=== PATIENT | male | born 1940 | race Caucasian/White ===

== ENCOUNTER 2018-05-25 06:08 | Day surgery (SDC) | payer MEDICARE, BC ==
--- NOTE | 2018-05-23 07:00 | HP ---
CC: Dr. Strauss; Dr. Mcgill at [facility]; Division of Pulmonary Medicine [facility] * ADMITTING HISTORY AND PHYSICAL: DATE OF ADMISSION: 05/25/18 ADMITTING DIAGNOSES: 1. Left hydronephrosis. 2. Calculus, left ureter. 3. Left renal calculus. PLANNED PROCEDURE: Left ureteroscopy, laser lithotripsy, and stent insertion ( possibly to be followed in near future by shockwave lithotripsy). SURGEON: Dr. Holman. HISTORY OF PRESENT ILLNESS: Sincere Myers is a 77-year-old gentleman who was recently evaluated after a gap of several years. He had previously been seen for a left hydrocele. He now presented with the imaging that had originally been done about in December of 2017, which according to the patient had shown an 8 -mm calculus in the left zsp-jy-[id number] ureter with left hydronephrosis. Apparently, nothing was done about this at that time up until recently when he had repeat imaging, which showed a persistent calculus. I saw him for the first time on 05/21/18 and ultrasound in my office confirmed what appears to be almost a 10 mm calculus in the mid to distal left ureter with left hydronephrosis and increased cortical echogenicity. Because of the large size of the calculus and the fact that I suspect based on the patient's history that it has been in the same location for at least the last 4 to 5 months, I have explained to him that he may require a 2-stage procedure with an initial stent insertion to allow for passive dilatation of the ureter followed later on by repeat ureteroscopy and laser lithotripsy. He also has a calculus of the left kidney, which may require shockwave lithotripsy at a later date. PAST MEDICAL HISTORY: Significant for: 1. Pulmonary asbestosis and recent diagnosis of mesothelioma, but did not require any treatment. 2. Atherosclerosis heart disease. 3. Diabetes mellitus. 4. Hypertension. 5. Peripheral vascular disease. 6. History of gout. MEDICATIONS ON ADMISSION: 1. Allopurinol 200 mg daily. 2. Amlodipine 10 mg daily. 3. Aspirin 325 mg daily. 4. Lipitor 20 mg daily. 5. Coreg 12.5 mg twice a day. 6. Glucotrol 5 mg 3 times a day. 7. Prevacid 30 mg daily. 8. Prinivil 40 mg twice a day. 9. Metformin 1000 mg twice a day. PAST SURGICAL HISTORY: Significant for bilateral total knee replacement, cholecystectomy, foot surgery, coronary artery bypass graft, and shockwave lithotripsy. ALLERGIES: No known drug allergies. REVIEW OF SYSTEMS: He denies any chest pain or shortness of breath (although he does have asbestosis). PHYSICAL EXAMINATION GENERAL: Reveals a pleasant elderly gentleman. VITAL SIGNS: Blood pressure is 134/80, pulse 81 per minute and regular, oxygen saturation 98% on room air, temperature 96.1. LUNGS: Clear bilaterally. CARDIOVASCULAR: Regular rate and rhythm. S1, S2. ABDOMEN: Soft with minimal left flank tenderness. IMPRESSION: I had a detailed discussion with Mr. Myers and reviewed all his imaging and lab studies and explained the procedure to him. I have also explained to him that he may require a multi-stage procedure given the fact that the stone is fairly big and has probably been impacted in the same location for the last several months. PLAN/RECOMMENDATIONS: Plan is left ureteroscopy, laser lithotripsy, and stent insertion; possibly to be followed by shockwave lithotripsy of the left renal calculus. [id number]/CPS #: [id number] ARY
[~2018-05-25 06:08] MED LIST: Buffered Lidocaine 0.9% SYRIN* 5 ML/SYR SYRINGE INTRADERM ONE; Famotidine IV* 10 MG/ML 2 ML (20 mg) IV ONE; Lactated Ringers 1000 ML Bag* 1,000 ML IV SCH
[2018-05-25] MEDS ORDERED: Gentamicin ADULT (*) 140 MG in NS 0.9% 100 ML* 100 ML IVPB ONE (07:00)
[2018-05-25] MEDS ORDERED: Famotidine IV* 10 MG/ML 2 ML (20 mg) ONE (07:12)
[2018-05-25] MEDS ORDERED: cefTRIAXone(*) 2 GM ADDV.VIAL IVPB ONE (07:15)
[2018-05-25] MEDS ORDERED: Lidocaine 2% PF * 5 ML VIAL ONE (07:17)
[2018-05-25] MEDS ORDERED: Ondansetron INJ* 2 MG/ML VIAL ONE (07:17)
[2018-05-25] MEDS ORDERED: Propofol* 10 MG/ML 20 ML BTL ONE (07:17)
[2018-05-25] MEDS ORDERED: Dexamethasone IV* 4 MG/ML 1 ML (4 MG) ONE (07:17)
[2018-05-25] MEDS ORDERED: Midazolam* 1 MG/ML 5 ML VIAL (5 MG) ONE (07:18)
[2018-05-25] MEDS ORDERED: KETAMINE HCL* 50 MG/ML 10 ML VIAL ONE (07:18)
[2018-05-25] MEDS ORDERED: Phenylephrine INJ* 10 MG/ML 1 ML VIAL (10 MG) ONE (07:18)
[2018-05-25] MEDS ORDERED: fentaNYL* 50 MCG/ML 2 ML VIAL (100 MCG VIAL) ONE ×2 (07:18→09:17)
[2018-05-25] MEDS ORDERED: Iohexol 180 (CONTRAST) 10 ML SDV IV ONE (07:20)
[2018-05-25] MEDS ORDERED: VASOPRESSIN 20 UNITS/ML 1 ML VIAL ONE (08:06)
[2018-05-25] MEDS ORDERED: Furosemide IV* 10 MG/ML 2 ML VIAL (20 MG) ONE ×2 (09:22→11:07)
[2018-05-25] MEDS ORDERED: Naloxone* 0.4 MG/ML 1 ML VIAL IV PRN (09:55)
[2018-05-25] MEDS ORDERED: Ondansetron INJ* 2 MG/ML VIAL IV PRN (09:55)
[2018-05-25] MEDS ORDERED: fentaNYL* 50 MCG/ML 2 ML VIAL (100 MCG VIAL) IV PRN (09:55)
[2018-05-25 11:32] VITALS: BP 142/77
--- NOTE | 2018-05-25 14:29 | OP ---
CC: Dr. Strauss; Dr. Fernando Holman* OPERATIVE REPORT: DATE OF OPERATION: 05/25/18 - [facility] DATE OF : 40 SURGEON: Fernando Holman MD ANESTHESIOLOGIST: Dr. Isbell. ANESTHESIA: General. PRE-OP DIAGNOSES: 1. Left hydronephrosis. 2. Calculus, left ureter. POST-OP DIAGNOSES: 1. Left hydronephrosis. 2. Calculus, left ureter. 3. Left ureteral polyps. OPERATIVE PROCEDURE: Cystoscopy, left retrograde pyelogram, left ureteroscopy, laser lithotripsy, and left stent insertion. INDICATIONS: Sincere Myers is a 77-year-old gentleman, who reportedly had an imaging study done in December, which had shown an 8-mm obstructing calculus in the left mid to distal ureter. For some reason, there was no further evaluation done up until recently when he had a repeat imaging study done for unrelated reasons, which showed a persistent calculus with persistent left hydronephrosis. OPERATIVE FINDINGS: 1. Moderately enlarged prostate. 2. Polyp, left distal ureter noted on ureteroscopy. 3. Large calculus impacted in left distal ureter, about 6 to 7 cm proximal to ureterovesical junction (possible additional proximal calculus). COMPLICATIONS: None. STENT USED: A 7-Argentine stent, left ureter. POSTOPERATIVE CONDITION: Stable. DESCRIPTION OF PROCEDURE: After induction of general anesthesia, the patient was placed in dorsal lithotomy position. Sequential compression devices were in place and functioning. Initial evaluation revealed a normal-appearing urethra, a mild to moderately enlarged prostate, and a trabeculated bladder with few small diverticula. A guidewire was introduced into the left ureter. Initially, the wire would not advance beyond the point of obstruction, but after some initial manipulation, the wire was carefully advanced proximally. Retrograde pyelogram revealed severe left hydronephrosis with a dilated proximal ureter. A 6-Argentine semi-rigid ureteroscope was introduced and advanced under direct vision. There was couple of small polyps noted in the lumen of the left distal ureter. About 6 to 7 cm above the ureterovesical junction, a fairly large 10 to 12 mm calculus was noted to be impacted with surrounding inflammatory response. Using a 550 micron holmium laser, this was broken up into multiple smaller pieces. Because of the degree of impaction, I did not attempt to completely remove all the pieces at the present time as I would like to allow for some passive dilatation of that part of the ureter and so after completion of the laser lithotripsy, a 7-Argentine stent was introduced and positioned under fluoroscopy with good proximal and distal positioning obtained. My plan is to leave the stent in for a few weeks, allow the hydronephrosis to resolve, and then to bring him back for a repeat ureteroscopy to remove all the remaining fragments and also to check possibly for an additional stone more proximal in the ureter where I could see what appears to be a radiopaque calculus on fluoroscopy higher up. The patient tolerated the procedure satisfactorily and was transferred back to recovery area in stable condition. [id number]/CPS #: [id number] ARY
== END 2018-05-25 11:53 | disposition home or self-care (01) ==
LOC: OR 06:08
PROVIDERS: ATTEND Urology
DX: N13.2 Hydronephrosis with renal and ureteral calculous obstruction (principal); N28.89 Other specified disorders of kidney and ureter; N40.0 Benign prostatic hyperplasia without lower urinary tract symptoms; I25.10 Atherosclerotic heart disease of native coronary artery without angina pectoris; Z95.1 Presence of aortocoronary bypass graft; E11.9 Type 2 diabetes mellitus without complications; Z79.84 Long term (current) use of oral hypoglycemic drugs; I65.29 Occlusion and stenosis of unspecified carotid artery; I10 Essential (primary) hypertension
CPT/HCPCS: 74018; 74420; C1876; J0696; J1100; J1580; J1940; J2250; J2405; J2704; J3010

== ENCOUNTER 2018-06-20 06:36 | Day surgery (SDC) | payer MEDICARE, BC ==
--- NOTE | 2018-06-14 20:18 | HP ---
CC: Dr. Raphael Strauss; Dr. Mcgill, [facility] * ADMITTING HISTORY AND PHYSICAL: DATE OF ADMISSION: 06/20/18 ADMITTING DIAGNOSES: 1. Left ureteral polyps. 2. Left ureteral calculus. SURGICAL PROCEDURE: Left ureteroscopy; biopsy, left ureteral polyp; laser lithotripsy; left stent replacement. SURGEON: Dr. Holman. HISTORY OF PRESENT ILLNESS: Sincere Myers is a 77-year-old gentleman who had undergone a left ureteroscopy for a large left ureteral calculus on 05/25/18. At the time of ureteroscopy, he was noted to have a few polyps in the distal left ureter, the etiology of which is unknown. He had undergone laser lithotripsy, but because the calculus was very large and was impacted, he still has some residual fragments. He is now being brought in for further evaluation for the left ureteral polyps and completion of the laser lithotripsy for the calculus. PAST MEDICAL HISTORY: Significant for atherosclerotic heart disease, history of pulmonary asbestosis and mesothelioma, hypertension, diabetes mellitus, gout , and peripheral vascular disease. PAST SURGICAL HISTORY: Extensive and significant for cholecystectomy, bilateral total knee replacement, coronary artery bypass graft, and shock wave lithotripsy of renal calculus. MEDICATIONS: On admission: 1. Amlodipine 10 mg daily. 2. Aspirin 325 mg daily. 3. Allopurinol 200 mg daily. 4. Coreg 12.5 mg b.i.d. 5. Glucotrol 5 mg 3 times a day. 6. Lipitor 20 mg daily. 7. Metformin 1000 mg b.i.d. 8. Prinivil 40 mg twice a day. 9. Prevacid 30 mg daily. ALLERGIES: No known drug allergies. REVIEW OF SYSTEMS: He denies any chest pain or shortness of breath other than his chronic level of shortness of breath, but no acute exacerbations. PHYSICAL EXAMINATION VITAL SIGNS: Blood pressure is 142/90, pulse 75 per minute and regular, oxygen saturation 98% on room air. LUNGS: Clear bilaterally. CARDIOVASCULAR: Regular rate and rhythm. S1, S2. ABDOMEN: Soft without masses with left flank tenderness. IMPRESSION AND PLAN: A 77-year-old gentleman with a large left ureteral calculus as well as polyps in the left ureter. Planned procedure is left ureteroscopy, biopsy of ureteral polyps, laser lithotripsy, and stent replacement. [id number]/[facility] #: [id number] [facility]
[~2018-06-20 06:36] MED LIST changes: -Buffered Lidocaine 0.9% SYRIN* 5 ML/SYR SYRINGE INTRADERM ONE; +Buffered Lidocaine 1% SYRIN* 1 ML/SYRINGE INTRADERM ONE; -Famotidine IV* 10 MG/ML 2 ML (20 mg) IV ONE; +Sodium Citrate/Citric Acid* 15 ML UDC PO ONE
[2018-06-20] MEDS ORDERED: Gentamicin ADULT (*) 160 MG in NS 0.9% 100 ML* 100 ML IVPB ONE (07:00)
[2018-06-20] MEDS ORDERED: Buffered Lidocaine 1% SYRIN* 1 ML/SYRINGE INTRADERM ONE (07:04)
[2018-06-20] MEDS ORDERED: Sodium Citrate/Citric Acid* 15 ML UDC ONE (07:04)
[2018-06-20] MEDS ORDERED: cefTRIAXone(*) 2 GM ADDV.VIAL IVPB ONE (07:04)
[2018-06-20] MEDS ORDERED: Iohexol 180 (CONTRAST) 10 ML SDV IV ONE (08:33)
[2018-06-20] MEDS ORDERED: fentaNYL* 50 MCG/ML 2 ML VIAL (100 MCG VIAL) IV PRN (08:35)
[2018-06-20] MEDS ORDERED: Ondansetron INJ* 2 MG/ML VIAL IV PRN (08:35)
[2018-06-20] MEDS ORDERED: Naloxone* 0.4 MG/ML 1 ML VIAL IV PRN (08:35)
[2018-06-20] MEDS ORDERED: Lidocaine 2% PF * 5 ML VIAL ONE (08:54)
[2018-06-20] MEDS ORDERED: fentaNYL* 50 MCG/ML 2 ML VIAL (100 MCG VIAL) ONE (08:54)
[2018-06-20] MEDS ORDERED: Propofol* 10 MG/ML 20 ML BTL ONE (08:54)
[2018-06-20] MEDS ORDERED: Carvedilol TAB* 25 MG PO ONE (10:03)
[2018-06-20] MEDS ORDERED: glipiZIDE TAB* 5 MG PO ONE (10:06)
[2018-06-20] MEDS ORDERED: Furosemide IV* 10 MG/ML 2 ML VIAL (20 MG) ONE (10:24)
[2018-06-20 11:26] VITALS: BP 169/92
--- NOTE | 2018-06-20 12:00 | OP ---
CC: Dr. Strauss * DATE OF OPERATION: 06/20/18 - [facility] DATE OF : 40 SURGEON: Dr. Holman. ANESTHESIOLOGIST: Dr. Corona. ANESTHESIA: General. PRE-OP DIAGNOSES: 1. Left hydronephrosis. 2. Calculus, left ureter. 3. Left ureteral polyps. POST-OP DIAGNOSES: 1. Left hydronephrosis. 2. Calculus, left ureter. 3. Left ureteral polyps. 4. 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 OPERATIVE PROCEDURE: Cystoscopy, left retrograde pyelogram, left ureteroscopy and stone extraction, and left stent replacement. COMPLICATIONS: None. STENT USED: A 7-Russian, 28 cm silicone stent, left ureter. POSTOPERATIVE CONDITION: Stable. INDICATIONS: Sinecre Myers is a 77-year-old gentleman who was evaluated because of a large calculus that had been impacted in his left ureter for several months. He had previously undergone laser lithotripsy with partial fragmentation of the calculus, but due to the extensive inflammatory response at the site of impaction, I did not completely clear out the calculus at that time. OPERATIVE FINDINGS: 1. Enlarged prostate with elevated bladder neck. 2. Stricture, left mid to distal ureter at site of prior large calculus impaction. 3. Residual fragments left ureter, removed. 4. Left ureteral polyps. DESCRIPTION OF PROCEDURE: After induction of general anesthesia, the patient was placed in dorsal lithotomy position. Sequential compression devices were in place and functioning. Initial evaluation revealed a normal-appearing urethra and a moderately enlarged prostate with an elevated bladder neck. The bladder was examined and was normal. The previously placed stent was seen and removed. Retrograde pyelogram revealed fullness of the left collecting system. A 4-Russian open-ended catheter advanced. There was considerable resistance at the junction of the mid to distal left ureter. A 6-Russian semi-rigid ureteroscope was introduced and it advanced under direct vision. At the junction of the mid to distal left ureter where the calculus had been impacted, there was considerable edema and inflammatory response and a stricture. There were several residual fragments still noted from the prior laser lithotripsy and most of these were removed using a 3- pronged grasper. Some of them appeared to be embedded into the mucosa and I did not attempt to remove them at this time. There were some small polyps noted in the distal ureter, but on closer examination, they did not appear to be suspicious visibly and my plan is to hold off on doing a biopsy at the present time because of the stricture involving the ureter. At this point, I proceeded with insertion of a 7-Russian, 28 cm black silicone stent which was positioned proximally and distally appropriately under fluoroscopic monitoring. My plan is to try and leave the stent in for 4 to 6 weeks and allow for passive dilatation of the stricture and then consider bringing him back for repeat ureteroscopy to check for any remaining stone fragments and also to address the polyps in the ureter if they need to be biopsied. The patient tolerated the procedure satisfactorily and was transferred back to the recovery area in stable condition. [id number]/CPS #: [id number] MTDD
== END 2018-06-20 11:49 | disposition home or self-care (01) ==
LOC: OR 06:36
PROVIDERS: ATTEND Urology
DX: N13.2 Hydronephrosis with renal and ureteral calculous obstruction (principal); N28.89 Other specified disorders of kidney and ureter; N32.0 Bladder-neck obstruction; E11.9 Type 2 diabetes mellitus without complications; Z79.84 Long term (current) use of oral hypoglycemic drugs; J61 Pneumoconiosis due to asbestos and other mineral fibers; I25.10 Atherosclerotic heart disease of native coronary artery without angina pectoris; I10 Essential (primary) hypertension; I73.9 Peripheral vascular disease, unspecified; E78.5 Hyperlipidemia, unspecified
CPT/HCPCS: 74018; 74420; 82365; 88300; A9270-GY; C1876; J0696; J1580; J1940; J2704; J3010

== ENCOUNTER 2018-09-10 05:52 | Day surgery (SDC) | payer MEDICARE, BC ==
--- NOTE | 2018-09-06 20:00 | HP ---
CC: Dr. Strauss; Dr. Mcgill * ADMITTING HISTORY AND PHYSICAL: DATE OF ADMISSION: 09/10/18 ADMITTING DIAGNOSES: 1. Left hydronephrosis. 2. Stricture, left ureter. 3. Left ureteral calculus. PLANNED PROCEDURE: Left ureteroscopy, possible laser, and stent replacement. HISTORY OF PRESENT ILLNESS: Sincere Myers is a 78-year-old gentleman who had undergone previous treatment for a large impacted calculus in the left ureter associated with a stricture. He is now being brought in for a followup ureteroscopy to assess for any residual fragments and also to try and assess for polyps in the ureter which had been noted initially. PAST MEDICAL HISTORY: Significant for: 1. Coronary artery disease. 2. History of pulmonary asbestosis. 3. Hypertension. 4. Diabetes mellitus. 5. Gout. 6. Peripheral vascular disease. PAST SURGICAL HISTORY: Significant for: 1. Bilateral total knee replacements. 2. Coronary artery bypass graft. 3. Cholecystectomy. 4. Lithotripsy for renal calculi. MEDICATIONS ON ADMISSION: 1. Aspirin 325 mg daily. 2. Coreg 12.5 mg twice a day. 3. Allopurinol 200 mg daily. 4. Amlodipine 10 mg daily. 5. Lipitor 20 mg daily. 6. Glucotrol 5 mg 3 times a day. 7. Prinivil 40 mg twice a day. 8. Metformin 1000 mg twice a day. 9. Prevacid 30 mg daily. ALLERGIES: No known drug allergies. FAMILY HISTORY: Negative for stones. SOCIAL HISTORY: Smoking history: He is a nonsmoker. REVIEW OF SYSTEMS: He denies any chest pain or shortness of breath. He is otherwise in fairly good health for his age and given his past medical history. PHYSICAL EXAMINATION GENERAL: Reveals a pleasant, elderly gentleman. VITAL SIGNS: Blood pressure is 118/80, pulse 67 per minute and regular, temperature 96.4, oxygen saturation 98% on room air. LUNGS: Clear bilaterally. CARDIOVASCULAR: Regular rate and rhythm. S1, S2. ABDOMEN: Soft with mild left flank tenderness. IMPRESSION AND PLAN: A 78-year-old gentleman with history of a stricture in left ureter (because of impaction of a very large calculus for over 8 or 9 months), who is being brought in for left ureteroscopy, possible laser, and stent replacement. [id number]/[facility] #: [id number] [facility]
[2018-09-10] MEDS ORDERED: Famotidine IV* 10 MG/ML 2 ML (20 mg) IV ONE (06:00)
[2018-09-10] MEDS ORDERED: Lactated Ringers 1000 ML Bag* 1,000 ML IV SCH (06:00)
[2018-09-10] MEDS ORDERED: cefTRIAXone(*) 2 GM ADDV.VIAL IVPB ONE (06:10)
[2018-09-10] MEDS ORDERED: Famotidine IV* 10 MG/ML 2 ML (20 mg) ONE (06:11)
[2018-09-10] MEDS ORDERED: Buffered Lidocaine 1% SYRIN* 1 ML/SYRINGE INTRADERM ONE (06:11)
[2018-09-10] MEDS: Buffered Lidocaine 1% SYRIN* 1 ML/SYRINGE INTRADERM ONE (06:26)
[2018-09-10] MEDS ORDERED: Lidocaine 2% PF * 5 ML VIAL ONE (07:04)
[2018-09-10] MEDS ORDERED: Propofol* 10 MG/ML 20 ML BTL ONE (07:04)
[2018-09-10] MEDS ORDERED: fentaNYL* 50 MCG/ML 2 ML VIAL (100 MCG VIAL) ONE (07:04)
[2018-09-10] MEDS ORDERED: Midazolam* 1 MG/ML 2 ML VIAL (2 MG) ONE (07:04)
[2018-09-10] MEDS ORDERED: Iohexol 180 (CONTRAST) 10 ML SDV IV ONE ×2 (07:21→08:04)
[2018-09-10] MEDS ORDERED: fentaNYL* 50 MCG/ML 2 ML VIAL (100 MCG VIAL) IV PRN (07:25)
[2018-09-10] MEDS ORDERED: Acetaminophen TAB* 325 MG PO PRN (07:25)
[2018-09-10] MEDS ORDERED: HYDROcodone/ACETAMIN 5-325 MG* 1 TAB PO PRN (07:25)
[2018-09-10] MEDS ORDERED: Naloxone* 0.4 MG/ML 1 ML VIAL IV PRN (07:25)
[2018-09-10] MEDS ORDERED: oxyCODONE TAB* 5 MG TAB PO PRN (07:25)
[2018-09-10] MEDS ORDERED: DiMENhydriNATE IV* 50 MG/ML VIAL IV PUSH PRN (07:25)
[2018-09-10] MEDS ORDERED: Phenylephrine 40 MCG/ML SYRINGE ONE (07:46)
[2018-09-10] MEDS ORDERED: EPHEDrine (Pressors)* 50 MG/ML VIAL ONE (07:55)
[2018-09-10] MEDS ORDERED: Ondansetron INJ* 2 MG/ML VIAL ONE (08:20)
[2018-09-10] MEDS ORDERED: Furosemide IV* 10 MG/ML 2 ML VIAL (20 MG) ONE (08:20)
[2018-09-10 10:11] VITALS: BP 162/87
--- NOTE | 2018-09-10 22:46 | OP ---
CC: Dr. Strauss * DATE OF OPERATION: 09/10/18 - [facility] DATE OF : 40 SURGEON: Fernando Holman MD. ANESTHESIOLOGIST: Dr. Donovan ANESTHESIA: General. PRE-OP DIAGNOSES: 1. Left hydronephrosis. 2. Stricture, left ureter. 3. Left ureteral calculi. POST-OP DIAGNOSES: 1. Left hydronephrosis. 2. Stricture, left ureter. 3. Left ureteral calculi. OPERATIVE PROCEDURE: Cystoscopy, left stent removal, left retrograde pyelogram , left ureteroscopy and stone removal, left ureteral balloon dilatation and left stent insertion. COMPLICATIONS: None. STENT USED: An 8.5-Costa Rican 28 cm silicone stent, left ureter. POSTOPERATIVE CONDITION: Stable. OPERATIVE FINDINGS: 1. Robg-se-zixfvnylbs enlarged prostate. 2. Stricture, left kyu-la-iituud ureter, with few small calculi and left hydronephrosis. INDICATIONS: Sincere Myers is a 78-year-old gentleman who had a calculus impacted in the ureter for more than 8 to 9 months resulting in a stricture in the ureter. He is being brought in for further evaluation with repeat ureteroscopy. DESCRIPTION OF PROCEDURE: After induction of general anesthesia, the patient was placed in dorsal lithotomy position. Sequential compression devices were in place and functioning. Initial cystoscopy revealed a normal appearing urethra and a mild- to-moderately enlarged prostate. The bladder was examined. The previously placed stent was removed. Retrograde pyelogram revealed left hydronephrosis and proximal hydroureter. A 6 - Costa Rican semi-rigid ureteroscope was introduced and advanced under direct vision. The distal 2 to 3 cm of the ureter were normal, but starting about 3 to 4 cm from ureterovesical junction, there was a segment of ureter about 4 to 5 cm long which was fairly narrow with chronic inflammatory changes and few small calculi that I could visualize were removed and were fairly soft and friable and fragmented upon removal. There were no sizable calculi visualized, although it is possible, with all the inflammatory response, that there may have been some small calculi that I was not able to see. Because of the significant narrowing of this segment of the ureter, I elected to proceed with balloon dilatation of the ureter and the mid and distal ureter were successfully balloon dilated under fluoroscopic monitoring. An 8.5-Costa Rican, 28 cm silicone stent was introduced and positioned under fluoroscopy with good proximal and distal positioning obtained. The patient had some additional left renal calculi that may require shockwave lithotripsy at a later date. He certainly would be at risk for recurrent stricture after stent removal and will need to be closely followed up for the next several years because of that possibility. The patient tolerated the procedure satisfactorily and was transferred back to the recovery area in stable condition. [id number]/CPS #: [id number] ARY
== END 2018-09-10 10:12 | disposition home or self-care (01) ==
LOC: OR 05:52
PROVIDERS: ATTEND Urology
DX: N13.2 Hydronephrosis with renal and ureteral calculous obstruction (principal); N13.1 Hydronephrosis with ureteral stricture, not elsewhere classified; E11.9 Type 2 diabetes mellitus without complications; Z79.84 Long term (current) use of oral hypoglycemic drugs; I25.10 Atherosclerotic heart disease of native coronary artery without angina pectoris; I10 Essential (primary) hypertension; I73.9 Peripheral vascular disease, unspecified; M10.9 Gout, unspecified
CPT/HCPCS: 74018; 74420; C1876; J0696; J1940; J2250; J2405; J2704; J3010

== ENCOUNTER 2018-10-08 10:00 | Day surgery (SDC) | payer MEDICARE, BC ==
--- NOTE | 2018-10-04 19:22 | HP ---
CC: Dr. Mcgill; Dr. Strauss* ADMITTING HISTORY AND PHYSICAL: DATE OF ADMISSION: 10/08/18 ADMITTING DIAGNOSES: 1. Left renal calculus. 2. Stricture, left ureter. PLANNED PROCEDURE: Shockwave lithotripsy of left renal calculus. SURGEON: Dr. Holman. HISTORY OF PRESENT ILLNESS: Sincere Myers is a 78-year-old gentleman who has been evaluated and treated for left ureteral calculi and a stricture in the left ureter. He was also noted to have left renal calculus and is now being brought in for shockwave lithotripsy for treatment of the left renal calculus. PAST MEDICAL HISTORY: Significant for: 1. Hypertension. 2. Diabetes mellitus. 3. History of coronary artery disease. 4. History of pulmonary asbestosis. 5. Peripheral vascular disease. 6. Gout. PAST SURGICAL HISTORY: Significant for cholecystectomy; left ureteroscopy, laser and stent on 2 separate occasions; bilateral total knee replacements; coronary artery bypass graft; and lithotripsy. MEDICATIONS ON ADMISSION: 1. Allopurinol 200 mg a day. 2. Coreg 12.5 mg b.i.d. 3. Lipitor 20 mg a day. 4. Amlodipine 10 mg a day. 5. Prinivil 40 mg b.i.d. 6. Glucotrol 5 mg 3 times a day. 7. Metformin 1000 mg twice a day. ALLERGIES: No known drug allergies. FAMILY HISTORY: Negative for stones. SOCIAL HISTORY: Smoking history: He is a nonsmoker. REVIEW OF SYSTEMS: He is otherwise in good health. He denies any chest pain or shortness of breath. There is a history of diabetes mellitus for which he takes metformin 1000 mg twice a day. There is no history of any other major systemic illness. PHYSICAL EXAMINATION GENERAL: Reveals a pleasant, elderly-appearing gentleman, who is alert and oriented. VITAL SIGNS: Blood pressure is 130/78, pulse 76 per minute and regular, temperature 97.1, oxygen saturation 97% on room air. LUNGS: Clear bilaterally. CARDIOVASCULAR: Regular rate and rhythm. S1, S2. ABDOMEN: Soft with left flank tenderness. IMPRESSION AND PLAN: A 78-year-old gentleman with history of a large left ureteral calculus and left ureteral stricture, who also has a left renal calculus and is now being brought in for shockwave lithotripsy for treatment of the left renal calculus. [id number]/[facility] #: [id number] ARY
[~2018-10-08 10:00] MED LIST changes: +DiMENhydriNATE IV* 50 MG/ML VIAL IV PUSH ONE; +DiMENhydriNATE IV* 50 MG/ML VIAL IV PUSH PRN; +Famotidine IV* 10 MG/ML 2 ML (20 mg) IV ONE; +Morphine 4 MG/ML VIAL (1 ml) 4 MG/ML VIAL IV PRN; +Naloxone* 0.4 MG/ML 1 ML VIAL IV PRN; +Ondansetron INJ* 2 MG/ML VIAL ONE; +PROCHLORPERAZINE INJ 5 MG/ML 2 ML VIAL IV PRN; -Sodium Citrate/Citric Acid* 15 ML UDC PO ONE; +fentaNYL* 50 MCG/ML 2 ML VIAL (100 MCG VIAL) IV PRN; +oxyCODONE/Acetamin 5/325 MG* TAB PO PRN
[2018-10-08] MEDS ORDERED: cefTRIAXone(*) 2 GM ADDV.VIAL IVPB ONE (10:29)
[2018-10-08] MEDS ORDERED: Buffered Lidocaine 1% SYRIN* 1 ML/SYRINGE INTRADERM ONE (10:29)
[2018-10-08] MEDS ORDERED: Ondansetron ODT TAB* 4 MG ONE (10:29)
[2018-10-08] MEDS ORDERED: Famotidine IV* 10 MG/ML 2 ML (20 mg) ONE (10:29)
[2018-10-08] MEDS ORDERED: Carvedilol TAB* 6.25 MG PO SCH (11:00)
[2018-10-08] MEDS ORDERED: Midazolam* 1 MG/ML 2 ML VIAL (2 MG) ONE (11:07)
[2018-10-08] MEDS ORDERED: KETAMINE HCL* 50 MG/ML 10 ML VIAL ONE (11:07)
[2018-10-08] MEDS ORDERED: fentaNYL* 50 MCG/ML 2 ML VIAL (100 MCG VIAL) ONE (11:07)
[2018-10-08] MEDS ORDERED: Lidocaine 2% PF * 5 ML VIAL ONE (13:44)
[2018-10-08] MEDS ORDERED: Propofol* 10 MG/ML 20 ML BTL ONE (13:44)
[2018-10-08] MEDS ORDERED: DiMENhydriNATE IV* 50 MG/ML VIAL ONE (14:37)
[2018-10-08 18:14] VITALS: BP 164/92
--- NOTE | 2018-10-08 23:34 | OP ---
DATE OF OPERATION: 10/08/18 - [facility] DATE OF : 40 SURGEON: Dr. Holman. ANESTHESIOLOGIST: Dr. Plasencia. ANESTHESIA: General. PRE-OP DIAGNOSIS: Left renal calculi. POST-OP DIAGNOSIS: Left renal calculi. OPERATIVE PROCEDURE: Shockwave lithotripsy of left renal calculi. COMPLICATIONS: None. POSTOPERATIVE CONDITION: Stable. INDICATIONS: Sincere Myers is a 78-year-old gentleman who had previously been treated for large obstructing calculus in the left distal ureter. At that time , he was also noted to have left renal calculi and is now being brought in for treatment of the renal calculi. DESCRIPTION OF PROCEDURE: After induction of general anesthesia, the patient was placed on lithotripsy table in supine position. There were two calculi noted in the mid pole area of the left kidney and these were localized using fluoroscopy. Shockwave lithotripsy was commenced at a rate of 90 shocks per minute. After the initial 300 shocks, there was a pause in lithotripsy for several minutes in an effort to minimize any potential trauma to the kidney. Lithotripsy was then resumed and a total of 2400 shocks were administered. The patient tolerated the procedure satisfactorily and was transferred back to the recovery area in stable condition. [id number]/[facility] #: [id number] MTDD
== END 2018-10-08 18:15 | disposition home or self-care (01) ==
LOC: OR 10:00
PROVIDERS: ATTEND Urology
DX: N20.0 Calculus of kidney (principal); I25.10 Atherosclerotic heart disease of native coronary artery without angina pectoris; Z95.1 Presence of aortocoronary bypass graft; E11.9 Type 2 diabetes mellitus without complications; Z79.84 Long term (current) use of oral hypoglycemic drugs; I10 Essential (primary) hypertension; I73.9 Peripheral vascular disease, unspecified
CPT/HCPCS: 74018; A9270-GY; J0696; J1240; J2250; J2704; J3010

== ENCOUNTER 2018-11-19 03:30 | Inpatient (IN) | payer MEDICARE, BC ==
[2018-11-19] MEDS ORDERED: NS 0.9% 1000 ML** 1,000 ML IV ONE (04:46)
[2018-11-19] MEDS ORDERED: Morphine 4 MG/ML VIAL (1 ml) 4 MG/ML VIAL IV ONE ×2 (04:46→06:18)
[2018-11-19] MEDS ORDERED: Ondansetron INJ* 2 MG/ML VIAL IV ONE (04:46)
--- NOTE | 2018-11-19 04:57 | ED ---
GI/ HPI - HPI Summary HPI Summary: Patient is a 78 y/o M presenting to ED with complaints of pain under left breast bone and N/V. Sx have been present for the past 36 hours. Last bowel movement was two days ago, but notes that he is passing gas. He denies Hx of bowel blockage. PSHx of cholecysetcomy, open heart surgery. Belly is round at baseline, but he notes it is larger than normal at present. He additionally states he cannot keep anything PO down. On triage, pain is rated 4/10, nothing is noted to aggravate/alleviate Sx. Home medications and allergies are reviewed. - History of Current Complaint Chief Complaint: EDAbdPain Time Seen by Provider: 11/19/18 04:37 Stated Complaint: GASTRIC DISTRESS PER PT Hx Obtained From: Patient Onset/Duration: Started Hours Ago - 36 hours ago, Still Present Timing: Constant, Lasting Hours - 36 hours ago Severity: Moderate Current Severity: Moderate Pain Intensity: 4 Location of Pain: Other - pain under left breast bone Associated Signs and Symptoms: Positive: Nausea, Vomiting, Constipation, Other: - pain under left breast bone Aggravating Factor(s): Nothing Alleviating Factor(s): Nothing - Allergy/Home Medications Allergies/Adverse Reactions: Allergies Allergy/AdvReac Type Severity Reaction Status Date / Time No Known Allergies Allergy Verified 11/19/18 03:40 Home Medications: Home Medications Aspirin 81 mg PO DAILY 11/19/18 [History Confirmed 11/19/18] raNITIdine HCl [Ranitidine HCl] 300 mg PO DAILY 11/19/18 [History Confirmed ] PMH/Surg Hx/FS Hx/Imm Hx Endocrine/Hematology History: Reports: Hx Diabetes - type 2 Cardiovascular History: Reports: Hx Angina, Hx Coronary Artery Disease - CABG 2010 cardiac stent 2010, Hx Hypercholesterolemia, Hx Hypertension - ON MEDICATION FOR, Hx Peripheral Vascular Disease - ? Denies: Hx Congestive Heart Failure, Hx Myocardial Infarction, Hx Valvular Heart Disease, Other Cardiovascular Problems/Disorders Respiratory History: Reports: Other Respiratory Problems/Disorders - [facility] following- abestso nodules in lung lining- stable, STATES ALL IS GOOD Denies: Hx Asthma, Hx Chronic Obstructive Pulmonary Disease (COPD) GI History: Reports: Hx Gall Bladder Disease - removal, Hx Gastroesophageal Reflux Disease - ON DAILY MEDS, Other GI Disorders - TO SEE FINANCIAL SERVICES ASSOCIATE JULY 2017-TROUBLE WITH DIGESTION- I History: Reports: Hx Kidney Stones Denies: Hx Dialysis Musculoskeletal History: Reports: Hx Arthritis - osteoarthritis hands, joints, Hx Gout, Other Musculoskeletal History - gout, CONTROLLED WITH MEDS Sensory History: Reports: Hx Contacts or Glasses - glasses for reading, Hx Hearing Aid - BILATERAL, WILL NOT BE WEARING DAY OF SURGERY Opthamlomology History: Reports: Hx Contacts or Glasses - glasses for reading - Cancer History Hx Chemotherapy: No - Surgical History Surgery Procedure, Year, and Place: CABG 3, cardiac stents 2010, [facility] right great toe removed 2010, [facility]. right foot all remaining toes removed 2013, [facility] LITHOTRIPSY 04/2018. [facility] [place]. right knee replacement 2003, [facility]. left knee replacement 2008, [place]. gall bladder removed 2009, [facility]. 2018-STENT INSERTION FOR KIDNEY STONE [facility] [place]. 06/2017 -RIGHT FOOT INFECTION- PROCEDURE FOR. 08/2018, urinary stent, [facility] Hx Anesthesia Reactions: No Infectious Disease History: No Infectious Disease History: Denies: Traveled Outside the [place] in Last 30 Days - Family History Known Family History: Negative: Renal Disease - no Hx of kidney stones - Social History Alcohol Use: Rare Alcohol Amount: 1 DRINK/WEEK Substance Use Type: Reports: None Smoking Status (MU): Never Smoked Tobacco Have You Smoked in the Last Year: No Review of Systems Gastrointestinal: Other - positive - constipation Positive: Vomiting, Nausea Musculoskeletal: Other - positive - pain under left breast bone All Other Systems Reviewed And Are Negative: Yes Physical Exam - Summary Physical Exam Summary: VITAL SIGNS: Reviewed. GENERAL: Patient is a well-developed and nourished male who is lying comfortable in the stretcher. Patient is not in any acute respiratory distress. HEAD AND FACE: No signs of trauma. No ecchymosis, hematomas or skull depressions. No sinus tenderness. EYES: PERRLA, EOMI x 2, No injected conjunctiva, no nystagmus. EARS: Hearing grossly intact. Ear canals and tympanic membranes are within normal limits. MOUTH: Oropharynx within normal limits. NECK: Supple, trachea is midline, no adenopathy, no JVD, no carotid bruit, no c- spine tenderness, neck with full ROM CHEST: Symmetric, no tenderness at palpation LUNGS: Clear to auscultation bilaterally. No wheezing or crackles. CVS: Regular rate and rhythm, S1 and S2 present, no murmurs or gallops appreciated. ABDOMEN: Soft, diffuse abdominal tenderness. Abdominal distention noted. No rebound no guarding, and no masses palpated. Bowel sounds are hyperactive. EXTREMITIES: FROM in all major joints, no edema, no cyanosis or clubbing. NEURO: Alert and oriented x 3. No acute neurological deficits. Speech is normal and follows commands. SKIN: Dry and warm Triage Information Reviewed: Yes Vital Signs On Initial Exam: Initial Vitals Temp Pulse Resp BP Pulse Ox 98.7 F 83 15 165/92 98 11/19/18 03:39 11/19/18 03:39 11/19/18 03:39 11/19/18 03:39 11/19/18 03:39 Vital Signs Reviewed: Yes Diagnostics - Vital Signs Vital Signs Temp Pulse Resp BP Pulse Ox 11/19/18 03:39 98.7 F 83 15 165/92 98 - Laboratory Result Diagrams: 11/19/18 05:03 11/19/18 05:03 Lab Statement: Any lab studies that have been ordered have been reviewed, and results considered in the medical decision making process. - Radiology abdomen x-ray Radiology Interpretation Completed By: ED Physician Summary of Radiographic Findings: Abdomen x-ray showed dilated small bowel loop , air level consistent with SBO, possible closed loop obstruction, pending official report. GIGU Course/Dx - Course Course Of Treatment: Patient is a 78 y/o M presenting to ED with complaints of pain under left breast bone and N/V. Sx have been present for the past 36 hours. Last bowel movement was two days ago, but notes that he is passing gas. He denies Hx of bowel blockage. PSHx of cholecysetcomy, open heart surgery. Belly is round at baseline, but he notes it is larger than normal at present. He additionally states he cannot keep anything PO down. On physical exam, diffuse abdominal tenderness, hyperactive bowel sounds, and abdominal distention noted. Labs showed WBC 15, RBC 5.63, MCH 26, RDW 17, absolute neuts 12.9, INR 1.11, BUN 26, creatinine 1.25, BUN/creatinine ratio 20.8, glucose 186 , magnesium 1.8, alk phos 115, CRP 35.8, amylase 36, lipase 31. Abdomen x-ray showed dilated small bowel loop, air level consistent with SBO, possible closed loop obstruction. During ED course, patient received fluids, Zofran 8 mg IV, morphine 4 mg IV and morphine 2 mg IV. Patient is signed out to Dr. Nguyen at 0700 11/19/[address] ABD/PEL and UA. - Diagnoses Provider Diagnoses: SBO (small bowel obstruction) Discharge - Sign-Out/Discharge Documenting (check all that apply): Sign-Out Patient Signing out patient TO: Santiago Nguyen - Discharge Plan Referrals: Raphael Strauss MD [Primary Care Provider] - - Attestation Statements Document Initiated by Scribe: Yes Documenting Scribe: SIM MCKEON Provider For Whom Scribe is Documenting (Include Credential): ARMOND BLACKWELL MD Scribe Attestation: ISIM, scribed for ARMOND BLACKWELL MD on 11/19/18 at 0700. Status of Scribe Document: Ready
[2018-11-19 05:09] LABS: ABS Basophils 0.1 10^3/ul (0-0.2); ABS Eosinophils 0.1 10^3/ul (0-0.6); ABS Lymphocytes 1.1 10^3/ul (1.0-4.8); ABS Monocytes 0.8 10^3/ul (0-0.8); ABS Neutrophils 12.9 10^3/ul (1.5-7.7); Eosinophil % 0.6 %; Hematocrit 45 % (42-52); Hemoglobin 14.5 g/dL (14.0-18.0); Lymphocyte % 7.1 %; Mean Corpuscular HGB Conc 32 g/dL (31-36); Mean Corpuscular Hemoglobin 26 pg (27-31); Mean Corpuscular Volume 80 fL (80-94); Mean Platelet Volume 9.1 fL (7.4-10.4); Platelet Count 233 10^3/uL (150-450); Red Blood Count 5.63 10^6 /uL (4.18-5.48); Red Cell Distribution Width 17 % (10-15)
[2018-11-19 05:19] LABS: Activated Partial Thrombo Time 36.2 seconds (26.0-38.0); INR 1.11 (0.82-1.09)
[2018-11-19 05:27] LABS: Albumin 4.1 g/dL (3.2-5.2); Albumin/Globulin Ratio 1.2 (1-3); BUN/Creatinine Ratio 20.8 (8-20); C Reactive Protein 35.8 mg/L (<8.01); Calcium 9.8 mg/dL (8.6-10.3); EGFR African American 67.6 (>60); EGFR Non-African American 55.9 (>60); Globulin 3.4 g/dL (2-4); Magnesium 1.8 mg/dL (1.9-2.7); Potassium 4.3 mmol/L (3.5-5.0); Total Bilirubin 0.8 mg/dL (0.2-1.0); Total Protein 7.5 g/dL (6.4-8.9)
[2018-11-19] MEDS ORDERED: Iodixanol* (CONTRAST) 320 MG/ML 100 ML SDV IV ONE (06:31)
--- NOTE | 2018-11-19 07:15 | ED ---
Progress - Progress Note Progress Note: The patient is a sign-out from Dr. Mukesh Harrison MD, to Dr. Santiago Nguyen MD at change of shift at 0700 on 11/19/2018 pending UA, CT Abd/Pel results, and disposition. Abd/Pel CT impression: 1. 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 2. There is a mesenteric mass with internal calcifications in the right lower quadrant with architectural distortion and tethering of adjacent small bowel loops giving rise to a partial small bowel obstruction. The findings would be suggestive of a carcinoid tumor although other malignant etiologies and chronic inflammatory processes should be considered. 3. Small amount of free intraperitoneal fluid. 4. Bilateral nonobstructing renal calculi. The left kidney is atrophic. There is a ureteral stent catheter present. No hydronephrosis is seen. UA reveals specific gravity >1.060 and 1+ protein. I consulted with Dr. Gutiérrez, surgery, and he accepts the patient for admission for surgery at 0820. I also spoke with Dr. George, hospitalist, who agrees with admission. He is diagnosed with SBO. He agrees with plan for admission. - Results/Orders Results/Orders: Abd/Pel CT Impression: 1. 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 2. There is a mesenteric mass with internal calcifications in the right lower quadrant with architectural distortion and tethering of adjacent small bowel loops giving rise to a partial small bowel obstruction. The findings would be suggestive of a carcinoid tumor although other malignant etiologies and chronic inflammatory processes should be considered. 3. Small amount of free intraperitoneal fluid. 4. Bilateral nonobstructing renal calculi. The left kidney is atrophic. There is a ureteral stent catheter present. No hydronephrosis is seen. ED physician has reviewed this report. Re-Evaluation - Re-Evaluation First Eval Re-Evaluation Time: 09:20 Comment: I discussed admission with the patient. Course/Dx - Course Course Of Treatment: The patient is a sign-out from Dr. Mukesh Harrison MD, to Dr. Santiago Nguyen MD at change of shift at 0700 on 11/19/2018 pending UA, CT Abd/ Pel results, and disposition. Abd/Pel CT impression: 1. 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 2. There is a mesenteric mass with internal calcifications in the right lower quadrant with architectural distortion and tethering of adjacent small bowel loops giving rise to a partial small bowel obstruction. The findings would be suggestive of a carcinoid tumor although other malignant etiologies and chronic inflammatory processes should be considered. 3. Small amount of free intraperitoneal fluid. 4. Bilateral nonobstructing renal calculi. The left kidney is atrophic. There is a ureteral stent catheter present. No hydronephrosis is seen. UA reveals specific gravity >1.060 and 1+ protein. I consulted with Dr. Gutiérrez, surgery, and he accepts the patient for admission for surgery at 0820. I also spoke with Dr. George, hospitalist, who agrees with admission. He is diagnosed with SBO. He agrees with plan for admission. - Diagnoses Provider Diagnoses: SBO (small bowel obstruction) - Provider Notifications Discussed Care Of Patient With: Ari Gutiérrez - surgery Time Discussed With Above Provider: 08:20 Instructed by Provider To: Other - I discussed the patient's case with Dr. Gutiérrez and Dr. George, hospitalist, and they agree with admission of the patient. Dr. Gutiérrez will consult. Discharge - Sign-Out/Discharge Documenting (check all that apply): Patient Departure - Patient is accepted for admission by Dr. Gutiérrez., Receiving Sign-Out Receiving patient FROM: Mukesh Harrison - Patient is a sign-out from Dr. Harrison at change of shift at 0700 on 11/19/2018 pending UA, CT Abd/Pel results, and disposition. Patient Received Moderate/Deep Sedation with Procedure: No - Discharge Plan Condition: Stable Disposition: ADMITTED TO [facility] - Billing Disposition and Condition Condition: STABLE Disposition: Admitted to [facility] - Attestation Statements Document Initiated by Scribe: Yes Documenting Scribe: Lily Diamond Provider For Whom Radhaibe is Documenting (Include Credential): Dr. Santiago Nguyen MD Scribe Attestation: I, Lily Diamond, scribed for Dr. Santiago Nguyen MD on 11/19/18 at 2124. Status of Scribe Document: Ready
[2018-11-19] MEDS ORDERED: NS 0.9% 500 ML* 500 ML IV ONE (08:13)
[2018-11-19] MEDS ORDERED: Dextrose 50% Syringe 50 ML* 25 GM/50 ML SYRINGE IV PUSH PRN (10:31)
[2018-11-19] MEDS ORDERED: Labetalol IV* 5 MG/ML 20 ML VIAL IV PUSH PRN (10:31)
[2018-11-19 10:52] LABS: Urine Appearance Clear; Urine Bacteria Absent (Absent); Urine Bilirubin Negative (Negative); Urine Blood Negative (Negative); Urine Color Yellow; Urine Glucose Negative (Negative); Urine Ketones Negative (Negative); Urine Nitrite Negative (Negative); Urine Protein 1+(30 mg/dL) (Negative); Urine Red Blood Cell Trace(0-2/hpf) (Absent); Urine Specific Gravity > 1.060 (1.010-1.030); Urine Urobilinogen Negative (Negative); Urine White Blood Cell Absent (Absent)
[2018-11-19] MEDS: NS 0.9% 1000 ML** 1,000 ML IV SCH (12:07)
[2018-11-19] MEDS: Morphine 4 MG/ML VIAL (1 ml) 4 MG/ML VIAL IV PRN ×3 (13:25→21:24)
[2018-11-19] MEDS ORDERED: Perflutren Lipid Microsphere* 3 ML VIAL ONE (13:27)
[2018-11-19] MEDS: Heparin VIAL(*) 5000 UNITS/ML VIAL (FIVE THOUSAND) SUBCUT SCH ×2 (13:29→21:28)
[2018-11-19] MEDS: Insulin LISPRO* 1 UNITS UNIT SUBCUT SCH ×3 (13:40→21:29)
--- NOTE | 2018-11-19 13:57 | HP ---
ADDENDUM NOW INCLUDED ON THIS REPORT CC: Dr. Strauss; Dr. Davies * HISTORY AND PHYSICAL: DATE OF ADMISSION: 11/19/18 TIME OF ADMISSION: 10 a.m. PRIMARY CARE PHYSICIAN: Dr. Strauss. He also sees Dr. Davies at the [facility]. OPERATIONAL ASSISTANT: Meera at [place]. CHIEF COMPLAINT: Abdominal pain. HISTORY OF PRESENT ILLNESS: This is a 78-year-old man with history of coronary artery disease and diabetes, who presented to the emergency department early this morning with abdominal pain that started Monday night approximately 36 hours ago. He had gone out to dinner for [employer] and when he got home he noticed some epigastric abdominal pain, but has been treating GERD lately and thought that it was related to reflux. He went to bed and then woke up Monday morning and had continued abdominal pain and was unable to keep any food down, he vomited everything he tried to eat on Monday and the abdominal pain progressed and eventually early this morning, the abdominal pain is what caused him to call EMS. In the emergency department, he was found to have a mesenteric mass, giving rise to a partial small bowel obstruction and an NG tube was placed. Dr. Gutiérrez was consulted and requested that we admit the patient. Mr. Myers is in the room with his , his son, and daughter and after receiving a dose of morphine is feeling much better. His nausea has resolved since the NG tube has been in place and his pain is controlled. His last colonoscopy was in 2004 and he is unsure what the results are. He believes he gets a "blood test" yearly to follow up on it. PAST MEDICAL HISTORY: Nephrolithiasis; coronary artery disease, status post CABG; postop AFib, for which he is not on anticoagulation; hypertension; type 2 diabetes; gout; asbestosis, for which he follows at [facility]; he had an EGD 2 months ago for GERD. PAST SURGICAL HISTORY: CABG, right TMA for an infection related to gout, knee replacement, cholecystectomy. HOME MEDICATIONS: 1. Allopurinol 300 mg daily. 2. Amlodipine 10 mg daily. 3. Aspirin 81 mg daily. 4. Atorvastatin 40 mg daily. 5. Coreg 12.5 mg b.i.d. 6. Diclofenac gel b.i.d. as needed for pain. 7. Glipizide 2 tabs in the morning and 1 tab at night. 8. Metformin 1000 mg b.i.d. 9. Omeprazole 40 mg daily. 10. Ranitidine 300 mg daily. FAMILY HISTORY: He does not know of any significant family medical problems. SOCIAL HISTORY: He lives in [place] with his Jackelyn. Jackelyn is his healthcare proxy at [phone]. He does not smoke, drink or use drugs. He is full code. 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 REVIEW OF SYSTEMS: Significant for constipation. His last bowel movement was 1 - 1/2 days ago, normal for him is daily. It is also positive for nausea, vomiting, and negative for cough, orthopnea, chest pain, fevers, falls, headache , and the remainder of the 14-point review of systems is negative. PHYSICAL EXAMINATION GENERAL: Alert, well-appearing elderly man in good spirits. He is in no distress and is nontoxic appearing. VITAL SIGNS: Temperature 98.7, heart rate 78, respiratory rate 17, pulse ox 98 % on room air, blood pressure 156/93. HEENT: Pupils equal, round, and reactive to light. Oral mucosa is dry. A NG tube is in the right nare and draining brown thin liquid. NECK: No JVP or adenopathy. LUNGS: His lungs are clear bilaterally. CHEST: He is in a regular rate rhythm with a systolic murmur at the right upper sternal border that does not radiate to the carotids. PMI is nondisplaced. He has a old sternotomy incision. ABDOMEN: His abdomen is distended, soft, nontender to deep palpation. His liver is nonpalpable. No masses or palpable. Bowel sounds are hypoactive. No CVA tenderness. EXTREMITIES: He has a right TMA. He has 1+ pitting edema bilaterally. DP pulses are 2+ bilaterally. NEUROLOGIC: He is oriented x3 and his strength is 5/5 in all extremities. DIAGNOSTIC STUDIES/LAB DATA: White blood cells 15.0, hemoglobin 14.5, platelets 233. INR 1.1. Sodium 137, potassium 4.3, chloride 102, BUN 26, creatinine 1.25, glucose 186, magnesium 1.8. CRP 35.8. Lipase 31, alk phos 115. The remainder of the LFTs are unremarkable. Imaging: An abdominal x-ray shows a dilated stomach with moderately dilated loops of small bowel in the left mid abdomen. 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 The findings would be suggestive of a carcinoid tumor, although other malignant etiologies and chronic inflammatory processes should be considered. Small amount of free intraperitoneal fluid and bilateral nonobstructing renal caliculi. The left kidney is atrophic. There is a ureteral stent catheter present. No hydronephrosis is seen. ASSESSMENT AND PLAN: This is a 78-year-old male with history of coronary artery disease, diabetes, and asbestosis, who presents to the emergency department with abdominal pain and is found to have partial small bowel obstruction with possible mass. 1. Partial small bowel obstruction. An NG tube is in place and is draining adequately with good symptomatic response. His pain is being controlled with morphine. He will continue to receive IV fluids. Dr. Gutiérrez has been consulted and has evaluated with the patient. I will touch base with him about his surgical plan. I have discussed the findings of a possible mass with Sincere and his family. Regarding his perioperative surgical risk, he has elevated risk with an RCRI of 2, which portends a 10.1% 30 day risk of major adverse cardiac event or and an NSQIP of 2.1% of major adverse cardiac event. 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 He does have a good functional capacity as he works as a huddleston. An EKG is pending. 2. Coronary artery disease status post coronary artery bypass grafting. He should be continued on his aspirin perioperatively; however, while he is NPO, I will give him aspirin GA. 3. Hypertension. He takes several antihypertensives and is on the hypertensive side in the emergency department. I will order p.r.n. IV antihypertensives while he is NPO. 4. Type 2 diabetes. He is on Glipizide and metformin at home. I will order fingersticks and lispro. 5. Gout. Hold allopurinol while he is NPO. 6. FEN. NPO with gentle IV fluids. 7. DVT prophylaxis, Heparin subcutaneous. We will hold when we find out the operative plan. 8. Disposition. Admit to Short Stay with a surgical consult, awaiting cardiology records. 9. Code status. I have discussed code status with him and his family, he wishes to be full code. ADDENDUM: Records and echo obtained from [facility] from 2018. They do not note the positive stress test done [place] [facility] [place]. I have discussed the case with Dr. Nath and asked him to see Mr. Myers preoperatively. [id number] #: [id number] #: [id number] ARY
--- NOTE | 2018-11-19 16:17 | ECHO ---
*[facility]* [place] [address] Fax #: [phone] Transthoracic Echocardiogram Patient: Louis, Height: 73 in / Sincere Gutierrez 185.4 cm : 1940 Weight: 199.6 lb / Study Date: 11/19/2018 90.7 kg Age: 78 BP: 148 / 82 Gender: M BMI/BSA: 26.4 kg/m^2 HR: 78 bpm / 2.15 m^2 *Component Overhaul Operator: * Bianca Rogers [facility] *Referring Physician: * Yvonne George *Reading Physician: * Lamonte Nath MD Indications: Murmur. History: Asbestosis, angina, PVD. Coronary artery disease. Risk factors: Hypertension. Diabetes mellitus. Dyslipidemia. Labs, prior tests, procedures, and surgery: Catheterization. There was a stenosis which was treated with a stent. Coronary artery bypass grafting. Conclusions Summary: 1. Left ventricle: The cavity size is normal. Wall thickness is mildly increased. Basal septal wall thickness is moderate to severly increased. Systolic function is normal. The estimated ejection fraction is 55-60%. Wall motion is normal; there are no regional wall motion abnormalities. 2. Mitral valve: There is trivial regurgitation. 3. Aortic valve: There is no evidence of stenosis. There is mild regurgitation. 4. Tricuspid valve: There is mild regurgitation. 5. Pericardium, extracardiac: There is no significant pericardial effusion. 6. Compared to study of 10/2010, there is little change. Study data: Transthoracic echocardiogram. Procedure: Transthoracic echocardiography was performed. Image quality was fair. Intravenous Definity , 2.5 mlswas administered. Complete 2D, spectral Doppler, and color flow Doppler. Location: Bedside. Patient status: Inpatient. Patient room number: 401. Rhythm: Normal sinus rhythm with PVC's. Findings Left ventricle: The cavity size is normal. Wall thickness is mildly increased. Basal septal wall thickness is moderate to severly increased. Systolic function is normal. The estimated ejection fraction is 55-60%. Wall motion is normal; there are no regional wall motion abnormalities. Doppler parameters are consistent with abnormal left ventricular relaxation (grade 1 diastolic dysfunction). Right ventricle: The cavity size is normal. Systolic function is normal. Systolic pressure is within the normal range. Left atrium: The atrium is mildly to moderately dilated. Right atrium: The atrium is mildly dilated. Mitral valve: The leaflets are mildly thickened. There is no evidence of stenosis. There is trivial regurgitation. Aortic valve: The annulus is mildly calcified. The valve is trileaflet. The leaflets are mildly thickened. There is no evidence of stenosis. There is mild regurgitation. Tricuspid valve: The leaflets are normal thickness. There is no evidence of stenosis. There is mild regurgitation. Pulmonic valve: The leaflets are normal thickness. There is no evidence of stenosis. There is no significant regurgitation. Aorta: Aortic arch: The aortic arch is poorly visualized. The aortic root is not dilated. Pericardium: There is no significant pericardial effusion. Pulmonary arteries: The main pulmonary artery is normal-sized. Systolic pressure is within the normal range. Systemic veins: Inferior vena cava: Not well visualized. Measurements Left ventricle Value Ref Aortic valve Value Ref MYRIAM, LAX 4.8 cm 4.2 - 5.8 Destini diam, ED 2.1 cm ----- ESD, LAX 2.5 cm 2.5 - 4.0 Peak v, S 1.71 m/sec ----- FS, LAX (H) 48 % 25 - 43 VTI, S 36.1 cm ----- PW, ED, LAX 1.0 cm 0.6 - 1.0 Mean grad, S 7.0 mm Hg ----- EF (H) 79 % 52 - 72 Peak grad, S 12.0 mm Hg ----- E', lat destini, TDI (L) 7.4 cm/sec >=10.0 E/e', lat destini, 11 Mitral valve Value Ref TDI Peak E 0.8 m/sec ----- E', med destini, TDI (L) 5.5 cm/sec >=7.0 Peak A 0.98 m/sec --- -- E/e', med destini, 14 Decel time 129 ms ----- TDI Peak grad, D 2.5 mm Hg ----- E', avg, TDI 6.5 cm/sec Peak E/A ratio 0.8 ----- E/e', avg, TDI 12 <=14 Pulmonic valve Value Ref LVOT Value Ref Peak v, S 0.64 m/sec ----- Peak kat, S 1.01 m/sec Peak grad, S 2.0 mm Hg ----- Mean grad, S 3 mm Hg Tricuspid valve Value Ref Ventricular septum Value Ref TR peak v 2.7 m/sec <=2.8 IVS, ED (H) 2.1 cm 0.6 - 1.0 Peak RV-RA grad, S 29 mm Hg ----- Right ventricle Value Ref Aortic root Value Ref MYRIAM, LAX 2.5 cm Root diam 3.1 cm <4.3 Pressure, S 32 mm Hg Ascending aorta Value Ref Left atrium Value Ref AAo AP diam, S 3.4 cm ----- AP dim, ES 3.90 cm 3.00 - 4.00 Pulmonary artery Value Ref ML dim, A4C 4.3 cm Pressure, S 30.0 mm Hg ----- SI dim, A4C 6.2 cm Vol/bsa, ES, A/L (H) 42 ml/m^2 16 - 34 Right atrium Value Ref SI dim, ES (H) 5.8 cm 3.4 - 5.3 ML dim, ES, A4C 3.8 cm 2.6 - 4.4 Estimated RAP 3 mm Hg Legend: (L) and (H) cong values outside specified reference range. Prepared and electronically signed by Lamonte Nath MD 11/19/2018 16:15
--- NOTE | 2018-11-19 16:38 | HP ---
HISTORY AND PHYSICAL: ADDENDUM: Records and echo obtained from [facility] from 2018. They do not note the positive stress test done here at [facility] in [place]. I have discussed the case with Dr. Nath and asked him to see Mr. Myers preoperatively. [id number]/[facility] #: [id number] [facility]OSPITALBrenda
--- NOTE | 2018-11-19 17:12 | CONS ---
CC: Dr. Strauss; Dr. George * CARDIOLOGY CONSULTATION: DATE OF CONSULT: 11/19/18 INDICATION FOR CONSULTATION: Coronary artery disease, coronary bypass surgery, preop for abdominal surgery. HISTORY OF PRESENT ILLNESS: The patient is a 78-year-old gentleman with a history of diabetes and coronary artery disease, who is admitted to the hospital with abdominal pain, he was diagnosed with small bowel obstruction. The patient may potentially need to go to the operating room tomorrow morning and I was consulted for evaluation of his cardiac status. In speaking with the patient, I cannot elicit any anginal type symptoms. He denies any chest pain. Denies any orthopnea. He denies any palpitations. No lightheadedness, dizziness , or syncope. The patient states that he has shortness of breath, but this has been chronic and ongoing for many years. 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 He is followed by [facility] with yearly chest x-rays and CAT scans. The patient's cardiac care has been mostly through the [facility]. He did have coronary bypass surgery after a cardiac catheterization here at [facility] in 2010. At that time, he had an 80% left main stenosis. After his bypass a year later, he had 1 stent put in. The patient denies any other coronary interventions in the last 5 years. The patient did have a chemical nuclear stress test here at [facility] in 2017. I personally reviewed those images. The report states that there are small areas of ischemia to the septal wall and distal lateral wall. Again, I personally reviewed these images. I cannot elicit any significant ischemia on these images. He does have a calculated ejection fraction of 46%. At that time, no further intervention was necessary. The patient was admitted to the hospital with nausea and vomiting, again diagnosed with a small bowel obstruction. The patient had a nasogastric tube placed. The patient does not have any significant improvement in his overall symptoms. PAST MEDICAL HISTORY: Significant for coronary artery disease, coronary bypass surgery, history of atrial fibrillation at the time of his bypass but none since then, hypertension, diabetes, nephrolithiasis. The patient has had lithotripsy x2 in the last year without difficulty. Gastroesophageal reflux disease. OUTPATIENT MEDICATIONS: 1. Allopurinol 300 mg a day. 2. Amlodipine 10 mg a day. 3. Aspirin 81 mg a day. 4. Atorvastatin 40 mg a day. 5. Coreg 12.5 mg a day. 6. Glipizide tablets as directed. 7. Metformin 1000 mg b.i.d. 8. Omeprazole 40 mg a day. 9. Ranitidine 300 mg a day. ALLERGIES: No known drug allergies. FAMILY HISTORY: No family history of early coronary artery disease or diabetes. SOCIAL HISTORY: He is . 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 He denies tobacco or alcohol use. REVIEW OF SYSTEMS: Positive for nausea, vomiting, abdominal distention, fevers. Negative for changes in weight. Negative for fevers. Other 12-point review is unremarkable. PHYSICAL EXAM: Height is 6 feet 1 inches, weight 200 pounds. Temperature 97.8 , heart rate is 80, blood pressure 148/82, respiratory rate is 17, oxygen saturation 96% on room air. Sclerae anicteric. Oropharynx is pink without erythema. Carotids are 2+ without bruits. JVD is normal. Thyroid is normal. Cardiac Exam: S1, S2 without any murmurs, rubs, or gallops. PMI is normal. Lungs are clear to auscultation bilaterally. There is no dullness to percussion. Abdomen is distended. Hypoactive bowel sounds. There is no obvious hepatosplenomegaly. Extremities show no edema. He has 2+ pulses throughout. The patient is awake, alert, and oriented. He moves all 4 extremities equally. DIAGNOSTIC STUDIES/LAB DATA: CBC: White count 15, hemoglobin 14, hematocrit 45 , platelet count 233. Chemistries within normal limits. BUN 29, creatinine 1.25 which is slightly higher than his baseline. AST and ALT are normal. Lipase is normal at 31. EKG: EKG shows normal sinus rhythm with left ventricular hypertrophy and T- wave abnormalities, this is unchanged from an EKG in 2015. IMPRESSION AND PLAN: This is a 78-year-old gentleman with a history of coronary artery disease, coronary bypass surgery, who comes into the hospital because of a small bowel obstruction. Again, the patient has been on a nasogastric tube for more than 24 hours without any resolution. The patient is potentially going to the operating room tomorrow for exploratory laparotomy. The patient's cardiac status appears to be stable. The patient is at mild to moderately increased risk of cardiovascular complications given his cardiac history. At this point, I do not think any other cardiac testing is necessary. Again, the patient had a stress test in 2017 which shows no obvious areas of ischemia. The calculated ejection fraction was 46%. The patient has undergone a number of urologic procedures including lithotripsy without any difficulty. I will continue to follow the patient during his hospitalization. The patient can proceed with surgery as described above. [id number]/[facility] #: [id number] MTDBrenda
[2018-11-19] MEDS ORDERED: Ondansetron INJ* 2 MG/ML VIAL ONE (17:13)
[2018-11-19] MEDS: Ondansetron INJ* 2 MG/ML VIAL IV PRN (17:16)
--- NOTE | 2018-11-19 19:50 | CONS ---
CC: Dr. Strauss; [facility] * SURGICAL CONSULTATION REPORT: DATE OF CONSULT: 11/19/18 LOCATION: The patient was seen in the emergency room earlier today on 11/19/18. HISTORY OF PRESENT ILLNESS: I was contacted by the emergency room to evaluate Mr. Myers, a 78-year-old diabetic who presented to the emergency room with a day and a half history of upper abdominal pain. Workup in the emergency room including CAT scan and labs was suggestive of small-bowel obstruction with mesenteric lesion. The patient describes that at the onset of pain he thought it was secondary to reflux, but it persisted and it led to nausea and vomiting where he had persistent vomiting and was unable to keep anything down. The patient denies any previous similar symptoms. He denies flatus. He is constipated. He has no appetite. PAST MEDICAL HISTORY: The patient has past medical history of coronary artery disease; status post CABG, kidney stones that led to multiple stenting and currently has a J-stent in on the left, hypertension, type 2 diabetes, history of AFib; but not on anticoagulation as this has resolved, GERD, and gout. PAST SURGICAL HISTORY: CABG as described above, right transmetatarsal amputation, knee replacement, and a laparoscopy converted to open cholecystectomy. MEDICATIONS: 1. Allopurinol. 2. Amlodipine. 3. Aspirin 81 mg. 4. Atorvastatin. 5. Coreg. 6. Diclofenac. 7. Glipizide. 8. Metformin. 9. Omeprazole. 10. Zantac. ALLERGIES: He has no known drug allergies. FAMILY HISTORY: Noncontributory. SOCIAL HISTORY: He is currently a nonsmoker. Lives with his and family who are with him today. 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 REVIEW OF SYSTEMS: No fevers or chills. Heart disease as described. GERD as described. Abdominal pain as described. No dysuria. The patient is planned for stent removal and possible exchange in January. The patient has had a colonoscopy that was within normal limits according to the patient. PHYSICAL EXAM: The patient is afebrile, heart rate in the 80s; normotensive, O2 sat 98% on room air, respirations 18 to 20. He is alert and oriented x3, in no distress, appears stated age. Head, Ears, Eyes, and Throat: Normocephalic, atraumatic. Sclerae anicteric. Mucous membranes are dry. Neck: No lymphadenopathy. Abdomen is soft, nondistended. Tender on deep palpation. No palpable masses. Well-healed surgical incisions. No groin hernias. Rectal Exam: Not performed. Extremities with no pitting edema, status post TMA on the right with good healing. DIAGNOSTIC STUDIES/LAB DATA: Labs show white count of 15 with left shift, H and H 14/45 which is above the patient's baseline. Chemistry panel shows a mildly elevated creatinine of 1.25. The patient's baseline is possibly under 1 , but his last draw in our institution it was also elevated. Elevated glucose of 160. CRP elevated at 35.8. Metabolic panel shows an INR 1.1. CAT scan of the abdomen and pelvis reviewed, both images and the report, and it is consistent with a soft tissue density mass in the mesentery of the small- bowel measuring 3 x 2 x 2.5 cm with tethering and adjacent large-bowel loops. It could represent a lymph node. It does show calcifications. The patient has free fluid, but no free air. Bilateral nonobstructive renal calculi with a ureteral stent on the left. No current hydronephrosis. I did look at images from 2015 and the patient did have a calcification in the mesentery at that time in a similar location, but with no inflammatory changes as seen today. HOSPITAL COURSE: The patient underwent placement of an NG tube with good relief. The output has been brown, but the volume of output has not been listed. The patient did undergo an echocardiogram and has been seen by cardiology. IMPRESSION AND PLAN: Small-bowel obstruction of unclear etiology, but would suggest a small-bowel mass leading to these changes. There are inflammatory changes with free fluid and mildly elevated white blood cell count, and I believe the patient warrants a trip to the operating room for exploratory laparotomy and possible bowel resection. I outlined the details of the procedure, going over the risks and benefits as well as the alternatives of watchful waiting, which I did not recommend. The patient's and the patient's family's questions were answered and they wished to proceed with surgical intervention. The patient's family also understands that Dr. Castillo will be available to do this procedure provided he is medically cleared at this time. We will schedule him tomorrow. He will continue with NG tube, receive antibiotics preoperatively , and be maintained on IV fluids, NG tube, and n.p.o. status. [id number]/[facility] #: [id number] [facility] SYSTEMBrenda
[2018-11-19] MEDS: Phenol 1.4% Spray* 177 ML BTL MT PRN (21:21)
[2018-11-20] MEDS: Morphine 4 MG/ML VIAL (1 ml) 4 MG/ML VIAL IV PRN ×2 (01:30→05:35)
[2018-11-20] MEDS: NS 0.9% 1000 ML** 1,000 ML IV SCH (01:33)
[2018-11-20] MEDS: Phenol 1.4% Spray* 177 ML BTL MT PRN (01:35)
[2018-11-20] MEDS: Insulin LISPRO* 1 UNITS UNIT SUBCUT SCH ×6 (01:38→21:12)
[2018-11-20] MEDS: Heparin VIAL(*) 5000 UNITS/ML VIAL (FIVE THOUSAND) SUBCUT SCH ×2 (04:59→12:14)
[2018-11-20] MEDS: Lactated Ringers 1000 ML Bag* 1,000 ML IV SCH ×3 (05:53→23:15)
[2018-11-20] MEDS ORDERED: Buffered Lidocaine 1% SYRIN* 1 ML/SYRINGE INTRADERM ONE (06:00)
[2018-11-20 06:14] LABS: ABS Basophils 0.1 10^3/ul (0-0.2); ABS Eosinophils 0.3 10^3/ul (0-0.6); ABS Lymphocytes 1.3 10^3/ul (1.0-4.8); ABS Monocytes 0.8 10^3/ul (0-0.8); ABS Neutrophils 4.9 10^3/ul (1.5-7.7); Eosinophil % 3.7 %; Hematocrit 37 % (42-52); Hemoglobin 11.9 g/dL (14.0-18.0); Lymphocyte % 17.5 %; Mean Corpuscular HGB Conc 32 g/dL (31-36); Mean Corpuscular Hemoglobin 26 pg (27-31); Mean Corpuscular Volume 81 fL (80-94); Mean Platelet Volume 9.6 fL (7.4-10.4); Platelet Count 186 10^3/uL (150-450); Red Blood Count 4.58 10^6 /uL (4.18-5.48); Red Cell Distribution Width 17 % (10-15); White Blood Count 7.4 10^3/uL (3.5-10.8)
[2018-11-20 06:24] LABS: INR 1.19 (0.82-1.09)
[2018-11-20 06:29] LABS: BUN/Creatinine Ratio 21.1 (8-20); Calcium 8.2 mg/dL (8.6-10.3); EGFR African American 62.9 (>60); Potassium 4.1 mmol/L (3.5-5.0)
--- NOTE | 2018-11-20 08:08 | PN ---
Hospitalist Progress Note Date of Service: 11/20/18
--- NOTE | 2018-11-20 08:13 | PN ---
Subjective Date of Service: 11/20/18 Interval History: HD # 2 on 11/20/18 78 M PMH CAD sp distant CABG, gout, PAF not on AC, HTN, DM, who presented with abd pain, N/V, found to have SBO 2/2 to new mesenteric mass. Overnight: VSS, no acute events. , no BM, good UOP This morning, seen just before surgery, was unable to do exam, seen after surgery and sedated, CAT call was done (see documentation) 2/2 to hypotension, AMS, likely from [employer] opiates, improved with Narcan, will be transferred to unit for closer monitoring Objective Active Medications: Aspirin (Asa Supp*) 300 mg NC DAILY [facility] Dextrose (D50w Syringe 50 Ml*) 12.5 gm IV PUSH .FOR FS < 60 - SS PRN PRN Reason: FS < 60 Heparin Sodium (Porcine) (Heparin Vial(*)) 5,000 units SUBCUT Q8HR [facility] Last Admin: 11/20/18 04:59 Dose: Not Given Sodium Chloride (Ns 0.9% 1000 Ml) 1,000 mls @ 75 mls/hr IV PER RATE [facility] Last Admin: 11/20/18 01:33 Dose: 75 mls/hr Lactated Ringer's (Lactated Ringers 1000 Ml Bag*) 1,000 mls @ 125 mls/hr IV PER RATE [facility] Last Admin: 11/20/18 05:53 Dose: 125 mls/hr Insulin Human Lispro (Humalog*) 0 units SUBCUT Q4HR [facility]; Protocol Last Admin: 11/20/18 06:30 Dose: Not Given Labetalol HCl (Trandate Iv*) 10 mg IV PUSH Q6H PRN PRN Reason: BLOOD PRESSURE Morphine Sulfate (Morphine 4 Mg/Ml Vial (1 Ml)) 4 mg IV Q4H PRN PRN Reason: PAIN - MILD Last Admin: 11/20/18 05:35 Dose: 4 mg Ondansetron HCl (Zofran Inj*) 4 mg IV Q4H PRN PRN Reason: NAUSEA Last Admin: 11/19/18 17:16 Dose: 4 mg Pantoprazole Sodium (Protonix Iv*) 40 mg IV DAILY [facility] Phenol/Menthol (Chloroseptic Throat [place]*) 1 spray MT TID PRN PRN Reason: SORE THROAT Last Admin: 11/20/18 01:35 Dose: 1 spray Vital Signs - 8 hr 11/20/18 11/20/18 11/20/18 01:30 02:49 03:45 Temperature 97.2 F Pulse Rate 74 Respiratory 16 18 16 Rate Blood Pressure 141/73 (mmHg) O2 Sat by Pulse 98 Oximetry 11/20/18 11/20/18 05:35 06:20 Temperature Pulse Rate Respiratory 16 16 Rate Blood Pressure (mmHg) O2 Sat by Pulse Oximetry Oxygen Devices in Use Now: None Appearance: Sleepy but arousable Eyes: - - 2mm pupils Ears/Nose/Mouth/Throat: Mucous Membranes Moist, - - Poor dentition Respiratory: Symmetrical Chest Expansion and Respiratory Effort, Clear to Auscultation Cardiovascular: NL Sounds; No Murmurs; No JVD, RRR Abdominal: NL Sounds; No Tenderness; No Distention, - - Midline incision, belly soft, without gaurding Lymphatic: No Cervical Adenopathy, No Axillary Adenopathy Skin: No Rash or Ulcers Neurological: - - Sleepy follows all commands Result Diagrams: 11/20/18 14:03 11/20/18 05:12 Assess/Plan/Problems-Billing Assessment: 78 M PMH CAD sp distant CABG, gout, PAF not on AC, HTN, DM, who presented with abd pain, N/V, found to have SBO 2/2 to new mesenteric mass. - Patient Problems (1) SBO (small bowel obstruction) Current Visit: Yes Status: Acute Code(s): K56.609 - UNSP INTESTNL OBST, UNSP TO PARTIAL VERSUS COMPLETE OBST SNOMED Code(s): 613394702 Comment: - 2/2 to mass, NGT in place to LIS (2) Mesenteric mass Current Visit: Yes Status: Acute Code(s): K63.9 - DISEASE OF INTESTINE, UNSPECIFIED SNOMED Code(s): 742948041 Comment: - s/p surgical resection (3) CAD (coronary artery disease) Current Visit: Yes Status: Acute Code(s): I25.10 - ATHSCL HEART DISEASE OF [place] CORONARY ARTERY W/O ANG PCTRS SNOMED Code(s): 27282201 Comment: - Asa 300 daily, will check EKG now (4) HTN (hypertension) Current Visit: Yes Status: Acute Code(s): I10 - ESSENTIAL (PRIMARY) HYPERTENSION SNOMED Code(s): 09877640 Comment: - Holding all anti HTN in post op setting (5) Non-insulin dependent type 2 diabetes mellitus Current Visit: Yes Status: Acute Code(s): E11.9 - TYPE 2 DIABETES MELLITUS WITHOUT COMPLICATIONS SNOMED Code(s): 74416248 Comment: - PRN lispro and POC Glu (6) Gout Current Visit: Yes Status: Acute Code(s): M10.9 - GOUT, UNSPECIFIED SNOMED Code(s): 45956927 Comment: - Currently not active (7) H/O asbestos exposure Current Visit: Yes Status: Acute Code(s): Z77.090 - CONTACT WITH AND ( SUSPECTED) EXPOSURE TO ASBESTOS SNOMED Code(s): 519649613 Comment: - No active issues (8) DVT prophylaxis Current Visit: Yes Status: Acute Code(s): Z29.9 - ENCOUNTER FOR PROPHYLACTIC MEASURES, UNSPECIFIED SNOMED Code(s): 592856476 Comment: - Will start SQH on 11/21 pending surgery approval (9) Full code status Current Visit: Yes Status: Acute Code(s): Z78.9 - OTHER SPECIFIED HEALTH STATUS SNOMED Code(s): 858631724 Status and Disposition: xfer to ICU for hemodynamic monitoring, see CAT note for further documentation
[2018-11-20] MEDS: Aspirin SUPP* 300 MG PR SCH (08:15)
[2018-11-20] MEDS: Pantoprazole IV* 40 MG IV SCH (08:55)
[2018-11-20] MEDS ORDERED: ceFOXitin 2 GM IVPREMIX* 2 GM/50 ML BAG ONE (10:20)
[2018-11-20] MEDS ORDERED: Propofol* 10 MG/ML 20 ML BTL ONE (10:39)
[2018-11-20] MEDS ORDERED: Lidocaine 2% PF * 5 ML VIAL ONE (10:39)
[2018-11-20] MEDS ORDERED: Rocuronium* 10 MG/ML VIAL ONE ×2 (10:40→12:48)
[2018-11-20] MEDS ORDERED: fentaNYL* 50 MCG/ML 5 ML VIAL (250 MCG VIAL) ONE (10:42)
[2018-11-20] MEDS ORDERED: Midazolam* 1 MG/ML 2 ML VIAL (2 MG) ONE (10:54)
[2018-11-20] MEDS ORDERED: Bupivacaine 0.25% SDV PF* 10 ML VIAL INJ ONE ×2 (12:02→14:42)
[2018-11-20] MEDS ORDERED: Heparin VIAL(*) 5000 UNITS/ML VIAL (FIVE THOUSAND) ONE (12:05)
[2018-11-20] MEDS ORDERED: Fluorescein 10% INJ* 100 MG/ML AMP ONE (13:46)
[2018-11-20 14:21] LABS: Hematocrit 36 % (42-52); Hemoglobin 11.8 g/dL (14.0-18.0)
[2018-11-20] MEDS ORDERED: Sugammadex * 200 MG/2 ML VIAL IV PUSH ONE (14:52)
--- NOTE | 2018-11-20 15:08 | OP ---
Operative Report - Blank - Operative Report Date of Operation: 11/20/18 Note: Brief Operative Note Preop Dx: small bowel obstruction with a mesenteric mass Postop Dx: small bowel obstruction with mesenteric mass Procedure: exploratory laparotomy, small bowel resection, ileocecal resection Anesthesia: GET; TAP block Surgeon: Anna Ash Conveyor Operator: Leona BRANHAM Fluids: 4500ml LR EBL: 200-300ml Specimen:portion small bowel; additional proximal small bowel; terminal ilium with cecum Drains: none Findings: dictated
[2018-11-20] MEDS ORDERED: EPHEDrine (Pressors)* 50 MG/ML VIAL ONE (15:18)
[2018-11-20] MEDS ORDERED: Naloxone* 0.4 MG/ML 1 ML VIAL IV PUSH PRN (16:03)
[2018-11-20] MEDS ORDERED: Naloxone* 0.4 MG/ML 1 ML VIAL IV PRN (16:12)
[2018-11-20] MEDS ORDERED: fentaNYL* 50 MCG/ML 2 ML VIAL (100 MCG VIAL) ONE ×2 (16:17→17:06)
[2018-11-20] MEDS: fentaNYL* 50 MCG/ML 2 ML VIAL (100 MCG VIAL) IV PRN ×5 (16:18→17:18)
[2018-11-20] MEDS ORDERED: HYDROmorphone PCA* 20 MG/20 ML PCA.SYRING PCA SCH ×2 (17:00→23:00)
[2018-11-20] MEDS ORDERED: Acetaminophen IV 1GM/100ML * 100 ML ONE (17:06)
[2018-11-20] MEDS ORDERED: NS 0.9% 500 ML* 500 ML IV PRN (18:45)
[2018-11-20] MEDS ORDERED: Naloxone Nasal Spray* 4 MG/0.1 ML NASAL.SPR INTRANASAL PRN (19:45)
--- NOTE | 2018-11-20 19:52 | PN ---
Hospitalist Progress Note Date of Service: 11/20/18 CAT Note Called to bedside patient sleepy but arousable with BP 75/40 PE: Pt sleepy but follows all commands 2mm pupils RRR soft FANG 2/6 Clear anterior lung thayer Belly soft distended hypoactive BS, mdiline incision CDI, scant blood Ext without edema, mildly cool, palpable pulses Presume oversedation and hypotension 2/2 to opiates, will r/o other causes such as acute blood loss, cardiac issues, no e/o sepsis or cardiogenic shock on exam , will check lactic acid -Narcan nasal x1, repeat 0.2 mg x1, repeat as needed, may need gtt -EKG now, repeat trops and H/H lactic acid and BMP -1L LR, for now, transfer to ICU for continuous pressure monitoring -Consider arana for possible retention -If drop in CBC will do stat CTAP
[2018-11-20] MEDS: Ondansetron INJ* 2 MG/ML VIAL IV PRN (20:30)
[2018-11-20] MEDS ORDERED: fentaNYL* 50 MCG/ML 2 ML VIAL (100 MCG VIAL) IV SLOW PU PRN (20:49)
[2018-11-20 20:50] LABS: Hematocrit 30 % (42-52); Hemoglobin 9.4 g/dL (14.0-18.0); Mean Corpuscular HGB Conc 31 g/dL (31-36); Mean Corpuscular Hemoglobin 27 pg (27-31); Mean Corpuscular Volume 85 fL (80-94); Platelet Count 158 10^3/uL (150-450); Red Blood Count 3.51 10^6 /uL (4.18-5.48); Red Cell Distribution Width 17 % (10-15); White Blood Count 20.9 10^3/uL (3.5-10.8)
[2018-11-20 21:08] LABS: ALT 172 U/L (7-52); AST 140 U/L (13-39); Albumin 2.2 g/dL (3.2-5.2); Albumin/Globulin Ratio 1.3 (1-3); Alkaline Phosphatase 74 U/L (34-104); Blood Urea Nitrogen 27 mg/dL (6-24); Calcium 7.2 mg/dL (8.6-10.3); EGFR African American 44.4 (>60); EGFR Non-African American 36.7 (>60); Globulin 1.7 g/dL (2-4); Glucose 131 mg/dL (70-100); Total Protein 3.9 g/dL (6.4-8.9)
[2018-11-20 21:14] LABS: Anion Gap 21 mmol/L (2-11); CO2 Carbon Dioxide 13 mmol/L (22-32); Chloride 115 mmol/L (101-111); Sodium 149 mmol/L (135-145)
[2018-11-20 21:15] LABS: ABS Lymphocytes 1.3 10^3/ul (1.0-4.8); ABS Monocytes 1.6 10^3/ul (0-0.8); ABS Neutrophils 17.9 10^3/ul (1.5-7.7); Eosinophil % 0.2 %; Lymphocyte % 6.3 %
[2018-11-20 21:18] LABS: Troponin I 0.06 ng/mL (<0.04)
--- NOTE | 2018-11-20 21:27 | PN ---
Progress Note - Progress Note Date of Service: 11/20/18 Note: ICU note; Patient seen in CAT call re hypotension 74/40 and poorly responsive. Was on HAND ALTERATIONS TAILOR which was stopped, and received 0.5 mg intrasal narcan and then 0.4 mg IV, with improvement in mental status, answering questions. BP remained low, moved to ICU. Here in ICU has received 500 ml LR bolus. BP has been 85/50 up to 118/67. HR 80s. O2 sats OK. He complains of nausea and pain in upper abdomen. NG tube to medium wall suction started Labs ordered on transfer, difficult to draw. Arana shows anuria, patient has CKD3 at baseline, and hydronephrosis. Selected Entries 11/20/18 11/20/18 11/20/18 18:54 20:00 21:02 Temperature 36.3 C Pulse Rate 78 Respiratory 14 25 Rate Blood Pressure 91/61 (mmHg) O2 Sat by Pulse 100 Oximetry Lungs: clear Heart: RRR Abdo: distended, tender throughout, absent BS, mild serosangiunous staining of midlline bandage RT forefoot amputated, DP pulses absent bilat Discussed case with Dr. Castillo, he is here assessing patient. Concern would be for intra-abdominal hemorrhage vs abdominal compartment syndrome, vs sepsis. Discussed case with Dr. Reich, he advised cut back IVF, transduce abdominal pressure from arana, use pain medication and start pressors if needed. Laboratory Tests 11/20/18 11/20/18 20:45 20:45 WBC 20.9 H Hgb 9.4 L Hct 30 L Plt Count 158 Sodium 149 H Potassium 5.0 Chloride 115 H Carbon Dioxide 13 L* Anion Gap 21 H Creatinine 1.80 H Glucose 131 H Calcium 7.2 L Total Bilirubin 1.40 H AST 140 H ALT 172 H Troponin I 0.06 H* Labs show worsened anemia, acute kidney injury, and metabolic acidosis. Lactate verbally 11.7. Will start IV zosyn. Dr. Castillo placing central line. Will discuss with Dr. Reich again. Time spent at bedside 2.1 hours.
[2018-11-20] MEDS ORDERED: Piperacillin/Tazobac ADVAN(*) 3.375 GM in NS 0.9% 100 ML* 100 ML IVPB ONE (21:29)
[2018-11-20] MEDS ORDERED: Zosyn per Pharmacy* NOTE FOLLOW UP SCH (22:00)
[2018-11-20] MEDS ORDERED: Lactated Ringers 1000 ML Bag* 1,000 ML IV SCH (22:00)
[2018-11-20 22:20] LABS: Hematocrit 29 % (42-52); Hemoglobin 9.1 g/dL (14.0-18.0); Mean Corpuscular HGB Conc 31 g/dL (31-36); Mean Corpuscular Hemoglobin 26 pg (27-31); Mean Corpuscular Volume 83 fL (80-94); Mean Platelet Volume 9.7 fL (7.4-10.4); Platelet Count 268 10^3/uL (150-450); Red Blood Count 3.53 10^6 /uL (4.18-5.48); Red Cell Distribution Width 17 % (10-15); White Blood Count 22.9 10^3/uL (3.5-10.8)
[2018-11-20 22:22] LABS: ABS Eosinophils 0.1 10^3/ul (0-0.6); ABS Lymphocytes 1.1 10^3/ul (1.0-4.8); ABS Monocytes 1.9 10^3/ul (0-0.8); ABS Neutrophils 19.8 10^3/ul (1.5-7.7); Eosinophil % 0.3 %; Lymphocyte % 4.6 %
[2018-11-20 22:36] LABS: ALT 288 U/L (7-52); AST 220 U/L (13-39); Albumin 2.4 g/dL (3.2-5.2); Albumin/Globulin Ratio 1.3 (1-3); Alkaline Phosphatase 76 U/L (34-104); Anion Gap 17 mmol/L (2-11); BUN/Creatinine Ratio 14.2 (8-20); Blood Urea Nitrogen 32 mg/dL (6-24); CO2 Carbon Dioxide 15 mmol/L (22-32); Calcium 7.6 mg/dL (8.6-10.3); Chloride 108 mmol/L (101-111); EGFR African American 34.1 (>60); EGFR Non-African American 28.2 (>60); Globulin 1.9 g/dL (2-4); Glucose 153 mg/dL (70-100); Potassium 4.9 mmol/L (3.5-5.0); Sodium 140 mmol/L (135-145); Total Protein 4.3 g/dL (6.4-8.9)
[2018-11-20 22:45] LABS: Troponin I 0.06 ng/mL (<0.04)
--- NOTE | 2018-11-20 22:51 | OP ---
CC: Raphael Strauss MD * DATE OF OPERATION: 11/20/18 - ROOM #ICU-09 DATE OF : 40 SURGEON: Higinio Catsillo MD FARM HELPER: FRANCISCO Mccormick ANESTHESIOLOGIST: Dr. Corona. ANESTHESIA: General endotracheal. PRE-OP DIAGNOSES: Small bowel obstruction and mesenteric mass. POST-OP DIAGNOSES: Small bowel obstruction, mesenteric mass, and multiple small bowel tumors. OPERATIVE PROCEDURES: Exploratory laparotomy, lysis of adhesions, small bowel resection and ileocecal resection. TAP block. ESTIMATED BLOOD LOSS: 300 mL. IV FLUIDS: 4.5 L of crystalloid. SPECIMENS: Portion of small bowel and terminal ileum with cecum. DRAINS: None. COMPLICATIONS: None. COUNTS: Instrument, needles, and sponge counts were correct. DESCRIPTION OF PROCEDURE: The patient was brought to the operating room and placed on the table supine. Sequential compression devices were placed on both lower extremities. General anesthesia was administered. Neal catheter was placed. He was positioned and padded appropriately and prepped and draped in the usual sterile fashion. Time-out was performed. Midline laparotomy was performed and small bowel was eviscerated. There was mildly dilated proximal loops of small bowel in the jejunum and in the proximal ileum, there was a mass of small bowel loops that were purplish discolored and adherent to a firm mass within the mesentery. Exploration was performed running the small bowel from the ileocecal valve proximally. There was decompressed bowel up to the point of the small bowel pathology and then running proximal from this to the ligament of Treitz, there were just dilated small bowel with no evidence of abnormality. Palpation of the peritoneal surfaces did not reveal any studding. The appendix appeared normal as did the ascending colon and the left lobe of the liver was normal to palpation as was the stomach with no palpable abnormalities in the transverse colon, descending colon and rectum. There was stool palpable within the rectum. Due to the patient's prior open cholecystectomy, the adhesiolysis was performed in the right upper quadrant freeing the edge of the right lobe of the liver, so that this could be palpated. There were 2 small nodules within the right lobe, perhaps 1 cm size, but these were not visualized. They were deeper within the parenchyma and due to the small size it was not felt and it could not be accurately biopsied. At this point, Tom retractor was placed and the decision was made to perform resection of the involved small bowel. The bowel was divided proximally with a FLORES stapler and the mesentery was divided towards the mesenteric mass with the LigaSure and in the areas where there was oozing from vessels and 2-0 Vicryl suture ligatures were used as well. Coming down to the mesenteric mass, this was quite hard and felt to encompass a larger area than it had been appreciated on the CT scan with extension into the more proximal portions of the mesentery. The small bowel was then divided distal to the area of concern and the mesentery was taken incrementally with a combination of LigaSure as well clamping with Christiane clamps and dividing, then ligating with 2-0 absorbable suture ligature. Upon coming down to the mesenteric mass, it appeared that the area was able to be elevated free from major vessels. The inspection of the undersurface of the mesentery revealed that there is adequate distance away from the duodenum; however, as the dissection preceded around the mesentery on the right side, there appeared to be a compromise to the terminal ileum extending to the cecum. At this point, it was decided not to further dissect around the mass due to concerns for compromising the proximal small bowel. Measuring the small bowel from the ligament of Treitz distally, there was about 250 cm of small bowel to that point. There did appear to be 2 smaller nodules within the wall of the bowel just proximal to the initial staple line and this area was resected back with additional firing of the staple and division of the mesentery with LigaSure. That proximal staple line was marked with a suture. Ultimately, the mass of small bowel that was initially identified was elevated. There was some tearing and separation from the mesenteric mass and it was divided to simply complete this division with a LigaSure and this specimen was submitted to pathology. There was some oozing from the mass itself, which was made hemostatic with the use of cautery and Surgicel and direct pressure. At this point, it was decided to perform a fluorescein inspection of the distal small bowel and right colon and inspection revealed inadequate perfusion to the remaining portions of the ileum and the cecum and therefore it was decided to resect this. The cecum was mobilized away from the right side using blunt dissection cautery as well as LigaSure and the mesentery was incrementally divided with the LigaSure and then the cecum was divided with the use of the FLORES 80 stapler. This ileocecal resection was submitted to pathology as well. The continuity of the bowels were restored by means of an ileocolic anastomosis using the FLORES 60 stapler with the TA 60 blue stapler used to close the common enterotomy. The crotch was reinforced with 3-0 silk and 3-0 silks were used in an interrupted fashion to reinforce the anterior staple line and the end staple line was oversewn with a 3-0 PDS. The large mesenteric defect was not able to closed again because the mesenteric mass was present at the base of this. Inspection of the abdomen reveals hemostasis to be excellent. Lavage was performed until clear with warm saline. The omentum was then drawn beneath the incision and the incision was closed with #1 PDS, double stranded, running. Before closure of the abdomen 50 mL of 0.25% bupivacaine was injected into the transversus abdominis plane using a blunt needle in this lateral portions of the abdominal wall to perform the TAP block. Small umbilical hernia defect was incorporated into the closure as well. The wound was irrigated and the skin was closed with michelle and dressings applied. The patient tolerated the procedure well and was extubated and transferred to the Recovery in stable condition. [id number] #: [id number] ARY
[2018-11-21] MEDS: Insulin LISPRO* 1 UNITS UNIT SUBCUT SCH ×4 (00:05→17:49)
[2018-11-21] MEDS: Heparin VIAL(*) 5000 UNITS/ML VIAL (FIVE THOUSAND) SUBCUT SCH ×4 (00:05→22:00)
--- NOTE | 2018-11-21 00:08 | PRO ---
DATE OF OPERATION: 11/20/18 - ROOM #ICU-09 SURGEON: Higinio Castillo MD ANESTHESIA: 1% lidocaine plain used locally. PRE-OP DIAGNOSIS: Hypotension and need for central venous access. POST-OP DIAGNOSIS: Hypotension and need for central venous access. OPERATIVE PROCEDURES: Placement of right IJ central venous catheter. ESTIMATED BLOOD LOSS: Less than 5 mL. COMPLICATIONS: None. DESCRIPTION OF PROCEDURE: The patient was positioned in Trendelenburg in the intensive care unit. The right neck was prepped and draped in usual sterile fashion. Time-out was performed. Local anesthetic was infiltrated for an anterior approach and the ultrasound was used for guidance. Under ultrasound guidance, the right internal jugular vein was cannulated with an #18 gauge needle and the guidewire was inserted without difficulty. The needle was withdrawn. The skin was nicked with a #11 blade scalpel, dilator was passed easily, and then the catheter was passed to 18 cm at which point, it was sutured to the skin at 4 points. Each port was drawn and flushed easily. Dressings were applied. The patient tolerated this procedure well. [id number]/CPS #: [id number] MTDD
[2018-11-21] MEDS: ZOSYN 3.375 GM Q8H per EXTENDED INFUSION IVPB SCH ×6 (02:10→17:49)
[2018-11-21] MEDS: Phenol 1.4% Spray* 177 ML BTL MT PRN (03:11)
[2018-11-21 05:12] LABS: ABS Lymphocytes 1.1 10^3/ul (1.0-4.8); ABS Monocytes 1.4 10^3/ul (0-0.8); ABS Neutrophils 16.6 10^3/ul (1.5-7.7); Hematocrit 28 % (42-52); Hemoglobin 8.8 g/dL (14.0-18.0); Lymphocyte % 5.7 %; Mean Corpuscular HGB Conc 32 g/dL (31-36); Mean Corpuscular Hemoglobin 26 pg (27-31); Mean Corpuscular Volume 82 fL (80-94); Platelet Count 248 10^3/uL (150-450); Red Blood Count 3.35 10^6 /uL (4.18-5.48); Red Cell Distribution Width 17 % (10-15); White Blood Count 19.1 10^3/uL (3.5-10.8)
[2018-11-21 05:34] LABS: BUN/Creatinine Ratio 14.5 (8-20); Calcium 7.5 mg/dL (8.6-10.3); EGFR African American 27.9 (>60); EGFR Non-African American 23.1 (>60)
[2018-11-21 05:35] LABS: Potassium 5.2 mmol/L (3.5-5.0)
[2018-11-21] MEDS: Lactated Ringers 1000 ML Bag* 1,000 ML IV SCH ×2 (06:51→15:53)
[2018-11-21] MEDS ORDERED: HYDROmorphone PCA* 20 MG/20 ML PCA.SYRING PCA SCH (07:53)
[2018-11-21] MEDS: Aspirin SUPP* 300 MG PR SCH (08:07)
[2018-11-21] MEDS: Pantoprazole IV* 40 MG IV SCH (08:57)
--- NOTE | 2018-11-21 09:52 | PN ---
Progress Note - Progress Note Date of Service: 11/21/18 SOAP: Subjective: Awake and alert when seen earlier. He reported pain of "5-6/10" and finds PLUMBER'S ASSISTANT effective. No N/V. C/o thirst. Objective: Vital Signs Temp 98 F 11/21/18 07:35 Pulse 89 11/21/18 09:00 Resp 26 11/21/18 09:00 BP 113/66 11/21/18 09:00 Pulse Ox 93 11/21/18 09:00 Gen: lying in bed; NAD Abd: dressings intact; distended with tympany and diffuse tenderness to palpation. No BS Ext: warm Intake & Output 11/20/18 11/21/18 11/21/18 18:59 06:59 18:59 Intake Total 4550 2078 Output Total 500 185 20 Balance 4050 1893 -20 Intake: IV Fluids 4550 1864 LR 4500 1678 NS (0.9%) 186 NS 50ML, Cefoxitin 2G 50 IVPB 214 Zosyn 214 Output: Arana 200 185 20 Estimated Blood Loss 300 Laboratory Results - last 24 hr 11/20/18 11/20/18 11/20/18 10:32 14:03 14:17 WBC RBC Hgb 11.8 L Hct 36 L MCV MCH MCHC RDW Plt Count MPV Neut % (Auto) Lymph % (Auto) [place] % (Auto) Eos % (Auto) Baso % (Auto) Absolute Neuts (auto) Absolute Lymphs (auto) Absolute Monos (auto) Absolute Eos (auto) Absolute Basos (auto) Absolute Nucleated RBC Nucleated RBC % Sodium Potassium Chloride Carbon Dioxide Anion Gap BUN Creatinine Est GFR ( Amer) Est GFR (Non-Af Amer) BUN/Creatinine Ratio Glucose POC Glucose (mg/dL) 122 H 139 H Lactic Acid Calcium Total Bilirubin AST ALT Alkaline Phosphatase Troponin I Total Protein Albumin Globulin Albumin/Globulin Ratio 11/20/18 11/20/18 11/20/18 20:45 20:45 20:45 WBC 20.9 H RBC 3.51 L Hgb 9.4 L Hct 30 L MCV 85 MCH 27 MCHC 31 RDW 17 H Plt Count 158 MPV 10.0 Neut % (Auto) 85.8 Lymph % (Auto) 6.3 [place] % (Auto) 7.5 Eos % (Auto) 0.2 Baso % (Auto) 0.2 Absolute Neuts (auto) 17.9 H Absolute Lymphs (auto) 1.3 Absolute Monos (auto) 1.6 H Absolute Eos (auto) 0.0 Absolute Basos (auto) 0.0 Absolute Nucleated RBC 0.0 Nucleated RBC % 0.0 Sodium 149 H Potassium 5.0 Chloride 115 H Carbon Dioxide 13 L* Anion Gap 21 H BUN 27 H Creatinine 1.80 H Est GFR ( Amer) 44.4 Est GFR (Non-Af Amer) 36.7 BUN/Creatinine Ratio 15.0 Glucose 131 H POC Glucose (mg/dL) Lactic Acid 11.9 H* Calcium 7.2 L Total Bilirubin 1.40 H AST 140 H ALT 172 H Alkaline Phosphatase 74 Troponin I 0.06 H* Total Protein 3.9 L Albumin 2.2 L Globulin 1.7 L Albumin/Globulin Ratio 1.3 11/20/18 11/20/18 11/20/18 22:10 22:10 22:10 WBC 22.9 H RBC 3.53 L Hgb 9.1 L Hct 29 L MCV 83 MCH 26 L MCHC 31 RDW 17 H Plt Count 268 MPV 9.7 Neut % (Auto) 86.6 Lymph % (Auto) 4.6 [place] % (Auto) 8.4 Eos % (Auto) 0.3 Baso % (Auto) 0.1 Absolute Neuts (auto) 19.8 H Absolute Lymphs (auto) 1.1 Absolute Monos (auto) 1.9 H Absolute Eos (auto) 0.1 Absolute Basos (auto) 0.0 Absolute Nucleated RBC 0.0 Nucleated RBC % 0.0 Sodium 140 D Potassium 4.9 Chloride 108 Carbon Dioxide 15 L Anion Gap 17 H BUN 32 H Creatinine 2.26 H Est GFR ( Amer) 34.1 Est GFR (Non-Af Amer) 28.2 BUN/Creatinine Ratio 14.2 Glucose 153 H POC Glucose (mg/dL) Lactic Acid 10.6 H* Calcium 7.6 L Total Bilirubin 1.20 H AST 220 H ALT 288 H Alkaline Phosphatase 76 Troponin I 0.06 H* Total Protein 4.3 L Albumin 2.4 L Globulin 1.9 L Albumin/Globulin Ratio 1.3 11/20/18 11/21/18 11/21/18 23:59 05:00 05:00 WBC 19.1 H RBC 3.35 L Hgb 8.8 L Hct 28 L MCV 82 MCH 26 L MCHC 32 RDW 17 H Plt Count 248 MPV 10.0 Neut % (Auto) 86.7 Lymph % (Auto) 5.7 [place] % (Auto) 7.5 Eos % (Auto) 0.0 Baso % (Auto) 0.1 Absolute Neuts (auto) 16.6 H Absolute Lymphs (auto) 1.1 Absolute Monos (auto) 1.4 H Absolute Eos (auto) 0.0 Absolute Basos (auto) 0.0 Absolute Nucleated RBC 0.0 Nucleated RBC % 0.0 Sodium 137 Potassium 5.2 H Chloride 106 Carbon Dioxide 20 L Anion Gap 11 BUN 39 H Creatinine 2.69 H Est GFR ( Amer) 27.9 Est GFR (Non-Af Amer) 23.1 BUN/Creatinine Ratio 14.5 Glucose 206 H POC Glucose (mg/dL) 170 H Lactic Acid Calcium 7.5 L Total Bilirubin AST ALT Alkaline Phosphatase Troponin I Total Protein Albumin Globulin Albumin/Globulin Ratio 11/21/18 11/21/18 06:04 06:56 WBC RBC Hgb Hct MCV MCH MCHC RDW Plt Count MPV Neut % (Auto) Lymph % (Auto) [place] % (Auto) Eos % (Auto) Baso % (Auto) Absolute Neuts (auto) Absolute Lymphs (auto) Absolute Monos (auto) Absolute Eos (auto) Absolute Basos (auto) Absolute Nucleated RBC Nucleated RBC % Sodium Potassium Chloride Carbon Dioxide Anion Gap BUN Creatinine Est GFR ( Amer) Est GFR (Non-Af Amer) BUN/Creatinine Ratio Glucose POC Glucose (mg/dL) 244 H Lactic Acid 5.7 H* Calcium Total Bilirubin AST ALT Alkaline Phosphatase Troponin I Total Protein Albumin Globulin Albumin/Globulin Ratio Assessment: POD#1 s/p exlap/DAKOTAH/ileocecal resection for 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 Episode of prolonged hypotension/hypoperfusion with "shock liver" and ARF; improved without pressors. Doesn't appear septic. Anemia due to acute blood loss from surgery in combination with dilution (6L crystalloid in <12 hr) Plan: Appreciate CCM/hospitalist management. Continue ICU monitoring, NGT, arana. Follow labs. Limit po to ice chips as has significant ileus. Antibiotics per CCM. Await path result.
--- NOTE | 2018-11-21 17:00 | PN ---
Date of Service: 11/21/18 Critical Care Services: Patient has had an uneventful day. 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 Lactate down from 12 to 6 this AM Vital Signs: Temp Pulse Resp BP SpO2 FiO2 97.6 F 87 15 98/60 90 Physical Exam: Gen:Alert, oriented Lungs:clear Abdomen: Positive bowel sounds Extremities: Warm. No cyanosis or edema Fluid Balance (Past 24 Hours): 11/19/18 11/20/18 11/21/18 11/22/18 06:59 06:59 06:59 06:59 Intake Total 2872 6628 1303 Output Total 600 685 25 Balance 2272 5943 1278 Weight 200 lb 206 lb 14.4 oz Intake: IV Fluids 2872 6414 236 LR 6178 100 NS (0.9%) 1372 186 136 NS 50ML, Cefoxitin 2G 50 IVPB 214 947 LR 947 Zosyn 214 Oral 0 120 Output: Urine 600 Neal 385 25 Estimated Blood Loss 300 Other: # Bowel Movements 0 # Voids 0 NOTE: About 8 Liters positive past 48 hrs. Labs: 11/20/18 11/21/18 11/21/18 23:59 05:00 05:00 WBC 19.1 H Hgb 8.8 L Hct 28 L MCV 82 Plt Count 248 Sodium 137 Potassium 5.2 H Chloride 106 Carbon Dioxide 20 L Anion Gap 11 BUN 39 Creatinine 2.69 Est GFR ( Amer) 27.9 Est GFR (Non-Af Amer) 23.1 BUN/Creatinine Ratio 14.5 Glucose 206 H POC Glucose (mg/dL) 170 H Lactic Acid Calcium 7.5 L Total Bilirubin AST ALT Alkaline Phosphatase Troponin I Total Protein Albumin Globulin Albumin/Globulin Ratio 11/21/18 11/21/18 11/21/18 06:04 06:56 12:53 WBC RBC Hgb Hct MCV MCH MCHC RDW Plt Count MPV Neut % (Auto) Lymph % (Auto) [place] % (Auto) Eos % (Auto) Baso % (Auto) Absolute Neuts (auto) Absolute Lymphs (auto) Absolute Monos (auto) Absolute Eos (auto) Absolute Basos (auto) Absolute Nucleated RBC Nucleated RBC % Sodium Potassium Chloride Carbon Dioxide Anion Gap BUN Creatinine Est GFR ( Amer) Est GFR (Non-Af Amer) BUN/Creatinine Ratio Glucose POC Glucose (mg/dL) 244 H 193 H Lactic Acid 5.7 H* Calcium Total Bilirubin AST ALT Alkaline Phosphatase Troponin I Total Protein Albumin Globulin Albumin/Globulin Ratio Studies: None today Nutrition: NPO Impression: 1. Major problem is postop RAFAEL, but patient is doing well clinically 2. IAH may have contributed to the RAFAEL Plan: 1. Monitor renal function and serum lactate levels 2. Limit IV fluids 3. Decompress GI tract 4. R/O adrenal insufficiency as cause of sudden postop hypotension Critical Care Time: 40 minutes
[2018-11-21] MEDS: Norepinephrine 16MCG/ML IVPRE* 4,000 MCG/250 ML BAG IV SCH (18:20)
[2018-11-21 19:31] LABS: BUN/Creatinine Ratio 12.5 (8-20); Calcium 7.4 mg/dL (8.6-10.3); EGFR African American 17.2 (>60); EGFR Non-African American 14.2 (>60)
[2018-11-21 19:34] LABS: Potassium 6.1 mmol/L (3.5-5.0)
[2018-11-21] MEDS ORDERED: Sodium Bicarbonate 8.4%* 50 ML SYRINGE ONE (19:43)
[2018-11-21] MEDS ORDERED: Sodium Bicarbonate 8.4% IV* 50 ML VIAL IV ONE (20:00)
[2018-11-21] MEDS ORDERED: fentaNYL* 50 MCG/ML 5 ML VIAL (250 MCG VIAL) ONE (21:20)
[2018-11-21] MEDS ORDERED: Etomidate* 2 MG/ML 10 ML VIAL ONE (21:20)
[2018-11-21] MEDS ORDERED: Norepinephrine VIAL* 1 MG/ML 4 ML VIAL ONE (21:20)
[2018-11-21 21:25] LABS: INR 2.11 (0.82-1.09)
[2018-11-21] MEDS ORDERED: Rocuronium* 10 MG/ML VIAL ONE (21:29)
--- NOTE | 2018-11-21 21:46 | PN ---
Progress Note - Progress Note Date of Service: 11/21/18 SOAP: Subjective: Pt seen and chart reviewed. Full progress note dictated Objective: hypotensive awake, drowsy, answers questions abdo: soft/ ND/ tender diffusely w/o rebound dressing intact labs noted Assessment: POD 1 ex lap, ileocecectomy, hypotensive, anuric, lactic acidosis Plan: Exploratory laparotomy, insertion of hemodialysis catheter, insertion of arterial line R/B/A discussed and pt and famility wish to proceed.
[2018-11-21] MEDS ORDERED: Midazolam* 1 MG/ML 2 ML VIAL (2 MG) ONE (22:08)
--- NOTE | 2018-11-21 23:25 | PN ---
PROGRESS NOTE: DATE OF VISIT: 11/21/18 HISTORY OF PRESENT ILLNESS: I was contacted by the critical care team at approximately 7:30 this yimi yadira with concerns about Mr. Myers, a 78-year-old gentleman, he is postop day 1 from exploratory l aboratory and ileocecectomy for a small bowel tumor that led to a small bowel obstruction. In the ea rly postoperative course, the patient did have an element of hypotension, this was treated with fluid bolus. The patient improved. By this morning, the patient continued to improve from a hemodynamic standpoint, but showed worsening anuria. He was followed by the critical care team and this evening w as noted to have additional hypotension similar to yesterday evening. At that time, a Levophed drip was started and labs were drawn showing an elevated lactate that had been improving throughout the co urse of yesterday into today, only now having jumped back up to 10. Reference range is less than 2. The patient had elevated potassium as well at 6.1 and we are co ntacted for evaluation. When I saw the patient, Levophed drip had been dropped back down to some extent. He had elevated bloo d pressure on the noninvasive measurement. He had no significant complaints. He was drowsy, however . PHYSICAL EXAMINATION: Temperature 98, blood pressure in the record was mildly hypotensive but with g ood MAP; however, again this did not fully represent some of the numbers obtained by the ICU staffing . He was on a drip as described. Heart rate in the 90s. He was alert, drowsy. He would answer que stions appropriately. Mildly jaundiced. Mucous membranes are dry. NG tube in place with thick brown secretions. Abdomen was soft, nondistended, tender diffusely without rebound. Dressing intact with some dry blood. I did not remove this. Hypoactive bowel sounds. Edema in the groin. Rectal exam n ot performed. Extremities showing mild edema. Neal catheter in place with no urine output. Labs reviewed as well as operative report and the patient's vitals throughout his hospital course. Case was discussed with Urology. 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 Most recent stenting placed in September. Urology felt th at though the patient had left atrophic kidney, most likely acute renal failure is not due to obstruc tion of the right ureter. The patient did have small 2 mm stone nonobstructing found on CAT scan 2 d ays ago. Case was discussed with Nephrology, who felt that the patient will require hemodialysis tomorrow and recommended hemodialysis catheter placement. I feel that the lactate elevation is likely not due to renal failure and agree with laparotomy. IMPRESSION: A 78-year-old gentleman with type 2 diabetes, kidney stone with likely left ureteral miya nosis and now anuric, status postoperative day #1 from an exploratory laparotomy and ileocecectomy fo r small bowel lesions. Pathology is pending. The patient is showing lactic acidosis of unclear etio logy along with hypotension. DIFFERENTIAL DIAGNOSIS: Includes ischemic bowel versus compartment syndrome versus hepatorenal sympt oms. PLAN: Plan at this point is exploratory laparotomy. I have recommended this to the family as well a s the patient who nodded in approval. The patient's family understood the critical condition of Mr. Myers. I consented for exploratory laparotomy and insertion of the hemodialysis catheter and inse rtion of an arterial line. I described that there was a chance of a negative laparotomy as far as th e the differential diagnosis of ischemic bowel or compartment syndrome. In all likelihood, we will l eave his abdomen open with a vacuum dressing without closing the fascia depending on what we find. T hey understand this. The patient will remain intubated and has a strong chance of not surviving this overall process. I spoke about the possibility of ischemic bowel or ischemia at the anastomosis and if this would be the case, we would do transection without reestablishing continuity of the bowel re quiring additional trips to the operating room. In all likelihood, he will require additional trips to the operating room, and again he is in critical condition, will require hemodialysis as well. I d escribed the need for hemodialysis and the risks of placement of this with including bleeding or infe ction. The alternatives were discussed, watchful waiting and repeat CT scan. This was brought up by the family as well. I do not feel comfortable bringing the patient for a CAT scan, that would invari ably need to be noncontrast since I felt that even negative findings on CAT scan would not prevent a strong recommendation of exploratory laparotomy. Their questions were answered. They understand the potential complications of prolonged hospitalization, stroke, MT, , need for feeding tube, trac heostomy, and additional trips to the OR including ongoing hemodialysis. The case was discussed with the anesthesiologist as well. We will be taking him to the OR urgently for the above procedure. [id number]/[facility] #: [id number]
[2018-11-21] MEDS ORDERED: Phenylephrine 40 MCG/ML SYRINGE ONE (23:28)
[2018-11-22] MEDS: NS 0.9% 1000 ML** 1,000 ML IV SCH ×2 (01:00→09:40)
[2018-11-22] MEDS ORDERED: Dexmedetomidine* 1,000 MCG in NS 0.9% 250 ML* 240 ML IV SCH (01:00)
[2018-11-22] MEDS: Insulin LISPRO* 1 UNITS UNIT SUBCUT SCH ×2 (01:54→06:01)
[2018-11-22] MEDS: ZOSYN 3.375 GM Q8H per EXTENDED INFUSION IVPB SCH ×4 (02:32→11:30)
[2018-11-22] MEDS: Chlorhexidine MOUTHWASH 0.12%* 15 ML UDC TOPICAL SCH ×3 (02:43→07:45)
--- NOTE | 2018-11-22 03:08 | BRIEFOPN ---
Brief Operative Note - Surgery Procedures: Procedures Pre-OP Diagnoses: Hypotension, lactic acidosis, ARF Post-op Diagnosis: hemoperitoneum, ARF Procedure: Exploratory laparotomy, evacuation of hematoma, washout of abdomen, resection of ileocolic anastomosis Surgeon: Brock Asst: Anna Anethesia: GETA Sanito EBL: 2L blood and blood clot IVF: see chart Specimen: ileocolic anastomosis Drains: none Complications: injury to ileocolic anastomosis
[2018-11-22] MEDS: Norepinephrine 16MCG/ML IVPRE* 4,000 MCG/250 ML BAG IV SCH ×4 (04:16→10:11)
[2018-11-22] MEDS: fentaNYL* 50 MCG/ML 2 ML VIAL (100 MCG VIAL) IV SLOW PU PRN ×2 (04:33→07:13)
[2018-11-22 05:27] LABS: Hematocrit 30 % (42-52); Hemoglobin 9.4 g/dL (14.0-18.0); Mean Corpuscular HGB Conc 31 g/dL (31-36); Mean Corpuscular Hemoglobin 27 pg (27-31); Mean Corpuscular Volume 85 fL (80-94); Mean Platelet Volume 9.4 fL (7.4-10.4); Platelet Count 257 10^3/uL (150-450); Red Blood Count 3.51 10^6 /uL (4.18-5.48); Red Cell Distribution Width 17 % (10-15)
[2018-11-22 05:44] LABS: BUN/Creatinine Ratio 13.2 (8-20); Calcium 6.7 mg/dL (8.6-10.3); EGFR African American 15.5 (>60); EGFR Non-African American 12.8 (>60)
[2018-11-22 05:46] LABS: Potassium 5.8 mmol/L (3.5-5.0)
--- NOTE | 2018-11-22 05:46 | OP ---
CC: Primary Care Doctor, Dr. Strauss * DATE OF OPERATION: 11/21/18 - ROOM #ICU-09 DATE OF : 40 SURGEON: Ari Gutiérrez MD. NEWSPERSON: Dr. Castillo. ANESTHESIOLOGIST: Dr. James. ANESTHESIA: General anesthesia. PRE-OP DIAGNOSES: 1. Hypotension. 2. Lactic acidosis. 3. Rule out ischemic bowel. POST-OP DIAGNOSIS: Hemoperitoneum. OPERATIVE PROCEDURE: 1. Insertion of temporary hemodialysis catheter. 2. Exploratory laparotomy, evacuation of hematoma. 3. Washout of abdomen. 4. Resection of ileocolic anastomosis. ESTIMATED BLOOD LOSS: 2 L of blood and blood clot. FLUIDS: See chart. Over 2 L of crystalloid fluid given. SPECIMENS: Ileocolic anastomosis. DRAINS: None. COMPLICATIONS: Injury to ileocolic anastomosis. DESCRIPTION OF PROCEDURE: The patient was brought from the ICU to the operating room, placed on the operating table in the supine position. The patient had already been on antibiotics. An A-line was placed by the anesthesiologist and then after placing sequential devices on bilateral lower extremities, general anesthesia was induced. The right groin was then prepped sterilely and the right superficial femoral vein was accessed and a wire inserted. The vein was dilated and a large bore temporary hemodialysis catheter was inserted without difficulty. This was then sutured to the skin and sterile dressing applied. The abdomen was clipped of hair, michelle were removed and the abdomen was prepped with Betadine and a time-out was performed. Looking down at the anterior fascia, we could see sutures in place. There was no evidence of fascial dehiscence. There is no leakage of fluid around the incision site. The suture was cut and we opened up the abdomen. The omentum was just below the incision and this was brought out. Once the omentum was lifted, a significant amount of blood was then evacuated. This was mostly liquid blood of approximately 1500 cc, but there was approximately 500 cc of blood clot that was removed. This was mostly in the pelvis and removed and also at the base of mesentery along the surgical site. As I was not sure where the bleeding was, I packed the pelvis and then turned the attention to the small bowel, which was additionally eviscerated. I ran this retrograde towards the expected ileocolic anastomosis, which was elevated into my incision site, but caused a tear just at the crotch the staple line from the anastomosis. A small rent was then grasped with an Allis clamp to prevent any spillage, and indeed there was no spillage. The attention was then turned to the right upper quadrant where the large bowel was still tethered to the hepatic flexure and was not easily mobile. Additional blood was removed from this site and we then turned our attention back to the pelvis. Lap pads were removed, and review of this site showed no active bleeding. We then extended the incision superiorly to allow to better evaluate the opening in the small bowel. This was not quite circumferential through the small bowel, but a significant opening and the given the patient's hypotension and clear disease, a decision was made to excise this anastomosis. Using 60 mm GI stapler's blue loads, we fired across through the small bowel at the anastomosis and lifted this up and took portion of mesentery between Christiane clamps. We then placed a 60-mm blue GI stapling device across the ascending colon and passed the anastomosis off as specimen. This appeared minimally dusky with evidence of bleed from the staple line, but had not been active, rather this was an iatrogenic injury in a patient who is clinically second felt that the patient should not have sutures or reanastomosis performed. Additional blood clots were then removed from the left upper abdomen. We then copiously irrigated the abdomen and again reviewed all 4 quadrants to make sure there is no active bleeding. The distal small bowel did appear dusky. We identified ligament of Treitz and encountered approximately 140 cm to the resected portion of small bowel. We dropped the bowel back into the abdomen as well and then draped the omentum over our incision site and reapproximated the midline incision with a #1 looped PDS suture. The wound was then irrigated and reapproximated with skin michelle followed by sterile dressing. The patient remained intubated in critical condition and transferred back to the ICU setting. [id number]/[facility] #: [id number] ARY
[2018-11-22] MEDS ORDERED: Dextrose 50% Syringe 50 ML* 25 GM/50 ML SYRINGE IV PUSH ONE (06:02)
[2018-11-22] MEDS: Pantoprazole IV* 40 MG IV SCH (07:45)
--- NOTE | 2018-11-22 07:56 | PN ---
Progress Note - Progress Note Date of Service: 11/22/18 SOAP: Subjective: Intubated and sedated. Per RN has had increasing pressor requirement. Objective: Vital Signs Temp 97.4 F 11/22/18 04:00 Pulse 84 11/22/18 06:00 Resp 24 11/22/18 07:13 BP 111/73 11/22/18 06:00 Pulse Ox 96 11/22/18 06:00 Gen: intubated sedated; eyes closed. Abd: dressings intact; soft and less distended. Intake & Output 11/21/18 11/22/18 11/22/18 18:59 06:59 18:59 Intake Total 1303 2850 Output Total 26 670 Balance 1277 2180 Weight 226 lb 3.108 oz Intake: IV Fluids 236 1334 LR 100 583 NS (0.9%) 136 751 IVPB 947 184 LR 947 Zosyn 184 Medicated IV 320 CC - Dexmedetomidine/ 37 Precedex CC - Norepinephrine/ 283 Levophed Oral 120 Packed Cells 345 Fresh Frozen Plasma 667 Output: NG Tube Drainage Amount 650 Neal 26 20 Laboratory Results - last 24 hr 11/21/18 11/21/18 11/21/18 06:56 12:53 17:43 WBC RBC Hgb Hct MCV MCH MCHC RDW Plt Count MPV INR (Anticoag Therapy) ABG pH ABG pCO2 ABG pO2 ABG HCO3 ABG O2 Saturation ABG Base Excess Sodium Potassium Chloride Carbon Dioxide Anion Gap BUN Creatinine Est GFR ( Amer) Est GFR (Non-Af Amer) BUN/Creatinine Ratio Glucose POC Glucose (mg/dL) 193 H 129 H Lactic Acid 5.7 H* Calcium Blood Type Antibody Screen Crossmatch 11/21/18 11/21/18 11/21/18 18:30 18:30 21:07 WBC RBC Hgb Hct MCV MCH MCHC RDW Plt Count MPV INR (Anticoag Therapy) 2.11 H ABG pH ABG pCO2 ABG pO2 ABG HCO3 ABG O2 Saturation ABG Base Excess Sodium 139 Potassium 6.1 H* Chloride 106 Carbon Dioxide 15 L Anion Gap 18 H BUN 51 H Creatinine 4.09 H Est GFR ( Amer) 17.2 Est GFR (Non-Af Amer) 14.2 BUN/Creatinine Ratio 12.5 Glucose 100 POC Glucose (mg/dL) Lactic Acid 9.9 H* Calcium 7.4 L Blood Type Antibody Screen Crossmatch 11/21/18 11/21/18 11/21/18 21:07 21:33 23:05 WBC RBC Hgb Hct MCV MCH MCHC RDW Plt Count MPV INR (Anticoag Therapy) ABG pH 7.12 L* ABG pCO2 39 ABG pO2 237 H ABG HCO3 12.4 L ABG O2 Saturation 99.5 H ABG Base Excess -16.0 L Sodium Potassium 6.0 H Chloride Carbon Dioxide Anion Gap BUN Creatinine Est GFR ( Amer) Est GFR (Non-Af Amer) BUN/Creatinine Ratio Glucose POC Glucose (mg/dL) Lactic Acid Calcium Blood Type A Positive Antibody Screen Negative Crossmatch See Detail 11/22/18 11/22/18 11/22/18 00:47 02:11 05:20 WBC RBC Hgb Hct MCV MCH MCHC RDW Plt Count MPV INR (Anticoag Therapy) ABG pH ABG pCO2 ABG pO2 ABG HCO3 ABG O2 Saturation ABG Base Excess Sodium 142 Potassium 5.8 H Chloride 111 Carbon Dioxide 16 L Anion Gap 15 H BUN 59 H Creatinine 4.48 H Est GFR ( Amer) 15.5 Est GFR (Non-Af Amer) 12.8 BUN/Creatinine Ratio 13.2 Glucose 57 L POC Glucose (mg/dL) 60 L 77 Lactic Acid Calcium 6.7 L Blood Type Antibody Screen Crossmatch 11/22/18 11/22/18 11/22/18 05:20 05:20 07:04 WBC 18.0 H RBC 3.51 L Hgb 9.4 L Hct 30 L MCV 85 MCH 27 MCHC 31 RDW 17 H Plt Count 257 MPV 9.4 INR (Anticoag Therapy) ABG pH ABG pCO2 ABG pO2 ABG HCO3 ABG O2 Saturation ABG Base Excess Sodium Potassium Chloride Carbon Dioxide Anion Gap BUN Creatinine Est GFR ( Amer) Est GFR (Non-Af Amer) BUN/Creatinine Ratio Glucose POC Glucose (mg/dL) 73 Lactic Acid 7.1 H* Calcium Blood Type Antibody Screen Crossmatch Assessment: POD#2 s/p ileocecal rsxn for SBO/tumor. POD#0 s/p exlap for hypotension findings of hemoperitoneum without active bleed, otherwise negative. Resection of anastomosis without reanastomosis due to intraop enterotomy. He is critically ill and remains anuric. Plan: Cont vent. Dialysis today. Wean pressors as able. Cont NGT. Check CMP. Will likely need TPN given prolonged NPO status (SBO preop). Ultimately, needs return to OR for reanastomosis when able.
[2018-11-22 08:56] LABS: Troponin I 6.49 ng/mL (<0.04)
[2018-11-22 08:58] LABS: Albumin 2.3 g/dL (3.2-5.2); Albumin/Globulin Ratio 1.2 (1-3); Globulin 1.9 g/dL (2-4); Indirect Bilirubin 0.5 mg/dL (0.3-1.0); Total Protein 4.2 g/dL (6.4-8.9)
[2018-11-22] MEDS ORDERED: fentaNYL* 50 MCG/ML 2 ML VIAL (100 MCG VIAL) IV SLOW PU PRN (09:00)
[2018-11-22] MEDS ORDERED: Vasopressin* 100 UNITS in D5W 250 ML BAG IV SCH (09:30)
[2018-11-22] MEDS ORDERED: DOBUTamine 2000 MCG/ML IVPREMX 500 MG/250 ML BAG IV ONE (09:59)
[2018-11-22] MEDS ORDERED: DOBUTamine 2000 MCG/ML IVPREMX 500 MG/250 ML BAG IV SCH (10:00)
[2018-11-22] MEDS ORDERED: NS 0.9% 100 ML* 100 ML ONE (10:09)
[2018-11-22 12:08] VITALS: BP 53/39
--- NOTE | 2018-11-22 12:56 | PN ---
Progress Note - Progress Note Date of Service: 11/22/18 Note: Patient brought back to OR last night because of hypotension and increasing lactates - no source of lactate found in OR, and this AM patient required high- dose levophed (25 mcg/min). ECG this AM shows evidence of inferior wall PR (Q waves in the inferior leads) and troponin level is elevated (6.5). Therefore, our Dx was cardiogenic shock from an acute PR (which may have been the source of the sudden hypotension last night) - BP steadily declined and dobutamine was added but without effect - I spoke with cardiology about placing an intraaortic balloon pump, but the consensus view was that this intervention would not improve the outcome (patient not a surgical candidate). Also tried to dialyse patient (creat up to 4, K in 6s) but unable because of severe hypotension. The patient was made a DNR, and he progressed to asystole and was pronounced at 12:20 PM. Family was present at the bedside.
--- NOTE | 2018-11-22 13:44 | DS ---
SUMMARY: DATE OF ADMISSION: 11/19/18 DATE : 11/22/18 TIME : 12:20 p.m. HISTORY OF PRESENT ILLNESS: This patient was a 78-year-old white male with history of hypertension, coronary artery disease, status post coronary artery bypass surgery, who was admitted on 11/19/18 with a small bowel obstruction from an abdominal mass. The patient went to the OR and had relief of the obstruction and partial removal of the mass and postoperatively developed hypotension and with lactate elevation to 12 mmol/L and required 5 L volume infusion to restore the blood pressure. The patient was brought to the intensive care unit and did well the day following surgery until early evening when there was a sudden episode of hypotension and further rise in the lactate level. Because of the suspicion of possible bowel ischemia, the patient was brought back to the operating room on the evening of 11/21/18 and 2 L of blood was noted in the peritoneal space but there was no evidence of bowel compromise. The patient was brought back to the intensive care unit and during the evening developed progressive hypotension requiring high- dose vasopressors. Renal failure which had started after the first surgical procedure continued to progress and after the second procedure, the creatinine was 4. A dialysis catheter was inserted but dialysis was not performed because of the severe hypotension. In the morning of 11/22/18, an electrocardiogram showed evidence of an acute inferior myocardial infarction (Q waves in 2, 3, and aVF) and troponin level was elevated at 6.5. Therefore, the suspicion was that the hypotension was a manifestation of cardiogenic shock. Blood pressure continued to decline and the patient was placed on dobutamine in addition to Levophed. Discussion with the cardiology service about an intraaortic balloon pump - the consensus view was that placement of a balloon pump would not improve the clinical outcome in this case. Because of the grim outlook, the family made the patient a DNR and the patient's blood pressure continued to decline until he eventually developed asystole and was pronounced at 12 :20 p.m. on 11/22/18. Family was present at the bedside and an autopsy will not be performed. FINAL DIAGNOSES: 1. Cardiogenic shock. 2. Acute inferior wall myocardial infarction. 3. Resection of an abdominal mass (pathology pending). 4. Coronary artery disease, status post coronary artery bypass surgery. 5. Acute renal failure secondary to the cardiogenic shock. [id number]/[facility] #: [id number] MTDD
--- NOTE | 2018-11-22 20:11 | PN ---
PROGRESS NOTE: DATE OF SERVICE: 11/22/18 REASON FOR EVALUATION: Acute renal failure and dialysis. SERVICE: [facility]. REQUESTING PHYSICIAN: Dr. Gutiérrez. SUBJECTIVE: The patient was seen and examined at bedside. The patient was intubated, on sedation. He was discussed with Dr. Reich at bedside, and labs and EKG had been reviewed. PHYSICAL EXAM: HEENT: Intubated. Heart: S1, S2 present. Regular rate and rhythm. Lungs: Decreased breath sounds bilaterally, on mechanical ventilation. Abdomen: Soft. No rebound. No guarding. The patient had to go back to the OR yesterday. Extremities: Noted to have 1+ edema. Neuro: Intubated on the ventilator. ASSESSMENT AND PLAN: 1. Acute kidney injury, likely secondary to acute tubular necrosis in the setting of cardiogenic shock. 2. The patient also actively noted to have acute inferior wall myocardial infarction based on troponin elevation and EKG changes consistent with it. 3. Recent resection of abdominal mass, pathology is pending, and small bowel obstruction. 4. The patient has multiple indications of dialysis. Currently, becoming anuric with metabolic acidosis and hyperkalemia. The patient was going to be initiated on dialysis even though it was not clear if the patient would tolerate dialysis. The patient initially was noted to have blood pressure in the 90s on Levophed drip. CVVH is unavailable at [place] and traditional hemodialysis was going to be attempted with no ultrafiltration to help with his metabolic acidosis, hyperkalemia, and uremia; however, unfortunately, prior to starting dialysis, the patient's blood pressure systolic was noted to be in the 50s. The patient also was around the same time noted to have an active coronary event and dialysis was held. 5. Later Dr. Reich had extensive discussion with the patient's family. He was made DNR, and the patient later in the day. Please refer to the summary dictated by Dr. Reich for full details. [id number]/[facility] #: [id number] [facility]
== END 2018-11-22 12:20 | disposition expired | DRG 329 ==
LOC: ED 03:30 → MED 09:44 → SSU 11-20 15:47 → ICU 11-20 19:48
PROVIDERS: ADMIT Internal Medicine; ATTEND Internal Medicine Critical Care Medicine
PROC: 0DBC0ZZ Excision of Ileocecal Valve, Open Approach (ICD-10-PCS; 2018-11-20)
PROC: 0DB80ZZ Excision of Small Intestine, Open Approach (ICD-10-PCS; principal; 2018-11-20 10:45)
PROC: 0D980ZZ Drainage of Small Intestine, Open Approach (ICD-10-PCS; 2018-11-21)
PROC: 0DTC0ZZ Resection of Ileocecal Valve, Open Approach (ICD-10-PCS; 2018-11-21)
PROC: 30233L1 Transfusion of Nonautologous Fresh Plasma into Peripheral Vein, Percutaneous Approach (ICD-10-PCS; 2018-11-21)
PROC: 30233N1 Transfusion of Nonautologous Red Blood Cells into Peripheral Vein, Percutaneous Approach (ICD-10-PCS; 2018-11-22)
DX: D49.0 Neoplasm of unspecified behavior of digestive system (principal); I21.19 ST elevation (STEMI) myocardial infarction involving other coronary artery of inferior wall; D62 Acute posthemorrhagic anemia; E87.2 Acidosis; N17.9 Acute kidney failure, unspecified; E27.40 Unspecified adrenocortical insufficiency; E78.00 Pure hypercholesterolemia, unspecified; I25.10 Atherosclerotic heart disease of native coronary artery without angina pectoris; K21.9 Gastro-esophageal reflux disease without esophagitis; M19.042 Primary osteoarthritis, left hand; M19.041 Primary osteoarthritis, right hand; M10.9 Gout, unspecified; Z96.653 Presence of artificial knee joint, bilateral; Z96.0 Presence of urogenital implants; I48.91 Unspecified atrial fibrillation; N20.0 Calculus of kidney; Z77.090 Contact with and (suspected) exposure to asbestos; N18.3 Chronic kidney disease, stage 3 (moderate); E11.22 Type 2 diabetes mellitus with diabetic chronic kidney disease; I12.9 Hypertensive chronic kidney disease with stage 1 through stage 4 chronic kidney disease, or unspecified chronic kidney disease; R57.0 Cardiogenic shock; I95.9 Hypotension, unspecified; Z66 Do not resuscitate; H91.90 Unspecified hearing loss, unspecified ear; Z97.4 Presence of external hearing-aid; Z87.442 Personal history of urinary calculi; Z90.49 Acquired absence of other specified parts of digestive tract; Z95.1 Presence of aortocoronary bypass graft; Z89.411 Acquired absence of right great toe; E87.5 Hyperkalemia
CPT/HCPCS: 36415; 36620; 71045; 74019; 74177; 80048; 80053; 80076; 81003; 81015; 82150; 82803; 83605; 83690; 83735; 84132; 84484; 85014; 85018; 85025; 85027; 85610; 85730; 86140; 86850; 86900; 86901; 86922; 86927; 87641; 88307; 88341; 88342; 88360; 93005; 93306; 94002; 99284; A9270-GY; C1776; C8929; J0694; J1170; J1250; J1644; J2250; J2270; J2310; J2405; J2543; J2704; J3010; J3490; P9017; P9040; Q9967